=== PATIENT | female | born 1955 | race Caucasian/White ===

== ENCOUNTER 2018-08-31 16:32 | Inpatient (IN) | payer OTHER ==
--- NOTE | 2018-08-31 16:41 | PDOC ---
Rapid Medical Evaluation Chief Complaint: Respiratory Time Seen by Provider: 08/31/18 16:38 Medical Evaluation: 08/31/18 16:40 I have performed a brief in person evaluation at triage on this patient. CC: Cough/HTN HPI: Pt is a 63 YO female who was sent her by her PCP due to HTN, no hx, and a cough x 3 months. PE: Skin: clear Lungs: clear Heart: RRR MS: Moves all extremities without difficulty Neuro: Alert and oriented Psych: Appropriate affect I have ordered: basic labs Pt will proceed to the main ED for further evaluation. Discharge Disposition - Diagnosis Cough - Referrals - Patient Instructions - Post Discharge Activity
[2018-08-31] MEDS ORDERED: amLODIPine BESYLATE 5 MG TABLET (FP) PO ONE (17:14)
--- NOTE | 2018-08-31 17:18 | PDOC ---
Documentation entered by Vaishali De Guzman SCRIBE, acting as scribe for Luis Norman MD. Luis Norman MD: This documentation has been prepared by the Gab hassan Amanda, SCRIBE, under my direction and personally reviewed by me in its entirety. I confirm that the documentation accurately reflects all work, treatment, procedures, and medical decision making performed by me. Attending Attestation - Resident Resident Name: [email or web address] - ED Attending Attestation I have performed the following: I have examined & evaluated the patient, The case was reviewed & discussed with the resident, I agree w/resident's findings & plan, Exceptions are as noted - HPI HPI: 08/31/18 17:32 The patient is a 63 year old female with a significant past medical history of hypertension who presents to the ED for evaluation of nonproductive cough for 3 months with associated muscle aches to her abdomen and flanks which she attributes to excessive coughing. She denies any chest pain, dizziness, palpitations. She denies headache, visual changes. She denies nausea, vomiting, diarrhea. Allergies: NKDA Social Hx: 1ppd smoker w/ 3 weeks cessation - Physicial Exam PE: 08/31/18 17:31 Vitals: Triage vital signs reviewed General Appearance: No acute distress, well nourished, well developed Head: Atraumatic Eyes: Pupils equal reactive round, extraocular movement intact Neck: Supple; No nuchal rigidity Chest Wall: Nontender Cardiac: (+) slightly tachycardic. Regular rhythm, no murmurs, no rubs, no gallops Lungs: Clear to auscultation bilateral, good air movement bilaterally Abdomen: Soft, nondistended, normal bowel sounds, nontender to palpation Extremities: Full range of motion to all extremities, no cyanosis, clubbing, or edema Skin: Warm and dry, no rashes or lesions, no rash, no petechiae Neuro: AOX3; Cranial Nerves 2-12 grossly intact, Strength intact to all extremities, Sensation intact to all extremities, gait normal Psych: Normal mood, normal affect - Medical Decision Making 08/31/18 18:49 63 years old 20+ pack year smoker uncontrolled hypertension sent from her primary care's office for blood pressure 210/120 with one-month history of cough shortness of breath and intermittent chest discomfort EKG demonstrates no ST elevations Labs pending chest x-ray concerning for right upper lobe mass versus consolidation We'll order CT blood pressure better controlled at this time Dr. Nunez to follow up labs , CT and dispo
[2018-08-31] MEDS ORDERED: amLODIPine BESYLATE 5 MG TABLET (FP) ONE (17:43)
[2018-08-31 17:54] LABS: BASO % 0.8 % (0-2.0); EOS % 5.8 % (0-4.5); HEMATOCRIT 37.4 % (32.4-45.2); HEMOGLOBIN 12.8 GM/dL (10.7-15.3); MCH 31.1 pg (25.7-33.7); MCHC 34.2 g/dl (32.0-36.0); MEAN CELL VOLUME 91.1 fl (80-96); MEAN PLT VOLUME 6.4 fl (7.5-11.1); MONO % 6.7 % (3.8-10.2); NEUT % 73.7 % (42.8-82.8); PLATELET COUNT 590 K/MM3 (134-434); RBC 4.11 M/mm3 (3.60-5.2); RDW 13.1 % (11.6-15.6); WHITE BLOOD COUNT 13.6 K/mm3 (4.0-10.0)
[2018-08-31 18:37] LABS: ALBUMIN 3.2 g/dl (3.4-5.0); ALK PHOS 78 U/L (45-117); ANION GAP 11 MMOL/L (8-16); BILIRUBIN,TOTAL 0.2 mg/dL (0.2-1); BLOOD UREA NITROGEN 12 mg/dL (7-18); CALCIUM 9.1 mg/dL (8.5-10.1); CHLORIDE 96 mmol/L (98-107); CO2 24 mmol/L (21-32); CREATININE 0.4 mg/dL (0.55-1.3); GLUCOSE,RANDOM 86 mg/dL (74-106); N-TERMINAL BNP 170.1 pg/ml (5-125); POTASSIUM 4.1 mmol/L (3.5-5.1); SGOT/AST 15 U/L (15-37); SGPT/ALT 24 U/L (13-61); SODIUM 131 mmol/L (136-145); TOT PROT 7.7 g/dl (6.4-8.2)
--- NOTE | 2018-08-31 19:40 | PDOC ---
History of Present Illness - General Chief Complaint: Respiratory Stated Complaint: SENT BY PCP Time Seen by Provider: 08/31/18 16:38 History Source: Patient Exam Limitations: No Limitations - History of Present Illness Initial Comments: 08/31/18 19:34 63F with a distant PMH of HTN (not on meds and has not seen PCP in 10 years) who present to the ED from her PCP's office. The patient was establishing care with her PCP for 4 months of intermittent cough that has worsened since the beginning of this month. The patient was noted to be hypertensive 200's/100's in the office with possible EKG changes. Cards was called, Dr. Heard, who recommended her to present to the ER. The patient has no complaints besides generalized weakness after exerting herself and her cough. Past History - Past Medical History Allergies/Adverse Reactions: Allergies Allergy/AdvReac Type Severity Reaction Status Date / Time No Known Allergies Allergy Verified 08/31/18 16:39 Home Medications: Ambulatory Orders NK [No Known Home Medication] 08/31/18 COPD: No - Suicide/Smoking/Psychosocial Hx Smoking History: Current every day smoker Number of Cigarettes Smoked Daily: 20 Information on smoking cessation initiated: Yes Review of Systems - Review of Systems Able to Perform ROS?: Yes Comments:: 08/31/18 19:42 GENERAL/CONSTITUTIONAL: No fever or chills. No weakness. HEAD, EYES, EARS, NOSE AND THROAT: No change in vision. No ear pain or discharge. No sore throat. CARDIOVASCULAR: No chest pain, palpitations, or lightheadedness. RESPIRATORY: + for cough. No wheezing, shortness of breath, or hemoptysis. GASTROINTESTINAL: No nausea, vomiting, diarrhea, constipation, or abdominal pain. GENITOURINARY: No dysuria, frequency, hematuria, or change in urination. MUSCULOSKELETAL: No joint or muscle swelling or pain. No neck or back pain. SKIN: No rash or lesions. NEUROLOGIC: No headache, numbness, tingling, focal weakness, loss of consciousness, or change in strength/sensation. *Physical Exam - Vital Signs Last Vital Signs Temp Pulse Resp BP Pulse Ox 98.4 F 98 H 27 H 176/109 H 95 08/31/18 16:39 08/31/18 18:00 08/31/18 18:00 08/31/18 18:00 08/31/18 16:39 - Physical Exam Comments: 08/31/18 19:43 GENERAL: Well developed, well nourished. Awake and alert. No acute distress. HEENT: Normocephalic, atraumatic. Hearing grossly normal. Moist mucous membranes. PERRLA, EOMI. No conjunctival pallor. Sclera are non-icteric. NECK: Supple. Full ROM. No JVD. CARDIOVASCULAR: Regular rate and rhythm. No murmurs, rubs, or gallops. PULMONARY: No evidence of respiratory distress. Lungs clear to auscultation bilaterally. No wheezing, rales or rhonchi. ABDOMINAL: Soft. Non-tender. Non-distended. No rebound or guarding. GENITOURINARY: No CVA tenderness bilaterally. MUSCULOSKELETAL: Normal range of motion at all joints. No bony deformities or tenderness. EXTREMITIES: No cyanosis. No clubbing. No edema. No calf tenderness or swelling. SKIN: Warm and dry. Normal capillary refill. No rashes. No jaundice. NEUROLOGICAL: Alert, awake, appropriate. Cranial nerves 2-12 intact. No deficits to light touch and temperature in face, upper extremities and lower extremities. 5/5 strength in deltoids, biceps, triceps, quadriceps, hamstrings, and gastrocnemius. Finger to nose normal bilaterally. Normal speech. Gait is normal without ataxia. PSYCHIATRIC: Cooperative. Good eye contact. Appropriate mood and affect. ED Treatment Course - LABORATORY CBC & Chemistry Diagram: 08/31/18 16:41 08/31/18 16:41 - ADDITIONAL ORDERS Additional order review: Laboratory Results 08/31/18 08/31/18 16:43 16:41 Sodium 131 L Potassium 4.1 Chloride 96 L Carbon Dioxide 24 Anion Gap 11 BUN 12 Creatinine 0.4 L Creat Clearance w eGFR 161.21 Random Glucose 86 Calcium 9.1 Total Bilirubin 0.2 AST 15 ALT 24 Alkaline Phosphatase 78 Creatine Kinase 49 Troponin I < 0.02 B-Natriuretic Peptide 170.1 H Total Protein 7.7 Albumin 3.2 L TSH 1.59 08/31/18 16:41 RBC 4.11 MCV 91.1 MCHC 34.2 RDW 13.1 MPV 6.4 L Neutrophils % 73.7 Lymphocytes % 13.0 Monocytes % 6.7 Eosinophils % 5.8 H Basophils % 0.8 - RADIOLOGY Radiology Studies Ordered: Category Date Time Status CHEST CTA [CT] Stat CT Scan 08/31/18 19:31 Ordered - Medications Given in the ED: ED Medications Discontinued Medications Generic Name Dose Route Start Last Admin Trade Name Kristyn PRN Reason Stop Dose Admin Amlodipine Besylate 5 mg 08/31/18 17:14 08/31/18 17:47 Norvasc - PO 08/31/18 17:15 5 mg ONCE ONE Administration Medical Decision Making - Medical Decision Making 08/31/18 19:43 63F with no PMH who presents from her PCP's clinic (first visit) with elevated BP and EKG changes. Due to abnormal presentation and 40 pack year history, will obtain imaging and give 5 norvasc for elevated BP. 08/31/18 21:47 Labs WNL. Mild leukocytosis but other labs WNL. CT shows lung mass w/ mets. Case d/w Dr. Castellano, pt's PCP, who request admission to hospital so that pt can see specialists, agreeable with our plan. Pt informed of results. Hospitalist paged for admission. 08/31/18 22:[address] Leon for admission. *DC/Admit/Observation/Transfer Diagnosis at time of Disposition: Cough, Lung mass - Discharge Dispostion Condition at time of disposition: Guarded Decision to Admit order: Yes - Referrals Referrals: Geri Castellano MD [Primary Care Provider] - - Patient Instructions - Post Discharge Activity
[2018-08-31] MEDS ORDERED: CEFTRIAXONE 1 GM in DEXTROSE 5%-WATER - 50 ML IVPB ONE (21:59)
[2018-08-31] MEDS ORDERED: AZITHROMYCIN IVPB 500 MG/250 ML BAG IVPB SCH (22:00)
--- NOTE | 2018-08-31 22:13 | PN ---
Teaching Attending Note Name of Resident: Daniel Leon ATTENDING PHYSICIAN STATEMENT I saw and evaluated the patient. I reviewed the resident's note and discussed the case with the resident. I agree with the resident's findings and plan as documented. SUBJECTIVE: Seen and examined; please refer to resident note for further historical information. Teodora, this is a 63 y/o female presenting from her PCP's ofice on first visit found to have SBP >200; in the ER SBP 170s at presentation and ask in terms of typical cardiac sx. On CTA of chest found to have cavitary RUL lesion with multiple pulmonary nodules likely representing metastatic disease alongside pathologic fractures, and possible infiltrate. Concern documented for poor followup; will admit to medicine with pulmonary, oncology consultation. Due to presence of hypertensive emergency will place on telemetry. She has had unproductive cough for 3 months and soreness and muscle pain from soreness from coughing; started after nonspecific URI in the AM. She was told she had an abnormal EKG but it is not clear what was abnormal; study not available. 2 weeks ago she went to urgent care and got teselon perles and azithro which didn't help. Unintentional weight loss of 13 lbs. Did have exposure to 01/12 ([facility] which was quite [place] 40 pack year smoking history. No home medications. When the medicine team came to see her at ~1040PM her BP was 208/119. She was still asymptomatic and saturating well on RA. We gave her hydralazine IV push and 2.5 lisinopril PO and will recheck. 10 sys ROS done and negative aside from HPI PMH, PSH, FH (pancreatic, breast CA; brother with CVAs in 40s), SH reviewed Home Medications Medication Instructions Recorded NK [No Known Home Medication] 08/31/18 OBJECTIVE: VS, labs, imaging reviewed NAD, AAO, resting comfortably in bed NC AT EOMI PERRLA; tobacco stained teeth Slight tachy to RRR with s1/2 no wendi mgr Some RUL No edema, no swelling in joints CN2-12 wnl, no fnd Normal mood, appropriate behavior CT final report reviewed CT abdomen/pelvis ordered; pending Echo pending ASSESSMENT AND PLAN: Patient presents for hypertensive emergency (200s at PCPs office, 170s here) and is found to have likely metastatic cancer. She will be brought to telemetry on medicine service with appropriate consultation; appreciate expert input. 1) Hypertensive urgency -Improved without tx initially; no documented home medications. ER events noted. Now that it is elevated again will give dose of hydralazine and lisinopril now. -Will likely require 2 agents for optimal control. Asx now; monitor for symptoms. Repeat troponin. Monitor on telemetry, checking echo. Starting on Amlodipine 5mg PO QD and Lisinopril 2.5mg PO QD. -Checking A1c, TSH, Lipids given lack of PCP in the past. Can send records to her current provider who she just started with. 2) Metastatic Cancer -Noted on imaging; given R-sided cavitary findings will check TB test to ensure no occult infection but would be more suspicious of metastasis given the multiple nodules, etc. -Consulting pulmonary medicine, hematology/oncology. Checking CT Abdomen/ Pelvis. Check CA19-9, CA125, HIV, etc. -Will discuss with patient 3) Likely CAP -Infiltrate noted; incentive spirometry ordered. 4) Pathological Fractures -Noted; needs OP assessment for osteoporosis. Sent off vitamin D levels 5) Elevated BNP -Given uncontrolled HTN has risk factors for impaired relaxation, etc. Will send off an echo. Appears mostly euvolemic so will hold off diuresis. 6) Low albumin -Checking prealbumin; may be #2 7) Ongoing Tobacco Abuse -OP PFTs; PRN nebs. Likely underlying COPD.
[2018-08-31] MEDS ORDERED: hydrALAZINE HCL 20 MG/ML VIAL IVPUSH ONE (22:39)
[2018-08-31] MEDS ORDERED: LISINOPRIL 5 MG TABLET (FP) PO ONE (22:39)
[2018-08-31] MEDS ORDERED: hydrALAZINE HCL 20 MG/ML VIAL ONE (23:25)
[2018-08-31] MEDS ORDERED: LISINOPRIL 5 MG TABLET (FP) ONE (23:25)
[2018-08-31] MEDS ORDERED: CEFTRIAXONE 1 GM/50 ML BAG ONE (23:26)
--- NOTE | 2018-08-31 23:36 | HP ---
CHIEF COMPLAINT: Elevated Blood pressure PCP: Dr Castellano HISTORY OF PRESENT ILLNESS: Pt is a 63 y/o F with no significant past medical history who presented to [facility] at the behest of her PMD due to elevated BP and EKG changes. Pt endorses that she does not regularly follow up with a primary care doctor however decided to establish care after developing a cough since this past May. 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 pt did not seek medical care at that time. Since illness in May, pt has had a chronic nonproductive cough. Pt endorses taking otc cough remedies and azithromycin which was prescribed to her after she visited an urgent care a few weeks ago for her symptoms. Pt endorses a 13 pound weight loss since May. Attributes this to decreased appetite. Denies fever, chills, hemoptysis. Furthermore, pt states she use to work at [employer] in [place] during 01/12 and was exposed to the air pollution. Also endorses a 40 pack year smoking history. PMH none PSurgHx- Tonsillectomy SocialHx- 2HACT14 years, 1 glass of wine per day FH- Father Stroke pancreatic cancer, mother breast cancer, DC, sister breast cancer, brother multiple CVAs in 40s. ER course was notable for: (1) BP in ED 208/110 (2) CT Chest---> [id number] cavitary lesion . Infiltrate right pulmonary apex 4.7x3. Fractures right eigth rib, left 10th rib. Metastatic disease. (3) Family History: Allergies No Known Allergies Allergy (Verified 08/31/18 16:39) HOME MEDICATIONS: Home Medications Medication Instructions Recorded NK [No Known Home Medication] 08/31/18 REVIEW OF SYSTEMS CONSTITUTIONAL: PRESENT loss of appetite, weight change HEENT: Absent: rhinorrhea, nasal congestion, throat pain, throat swelling, difficulty swallowing, mouth swelling, ear pain, eye pain, visual changes CARDIOVASCULAR: Absent: chest pain, syncope, palpitations, irregular heart rate, lightheadedness , peripheral edema RESPIRATORY: PRESENT cough GASTROINTESTINAL: Absent: abdominal pain, abdominal distension, nausea, vomiting, diarrhea, constipation, melena, hematochezia GENITOURINARY: Absent: dysuria, frequency, urgency, hesitancy, hematuria, flank pain, genital pain MUSCULOSKELETAL: Absent: myalgia, arthralgia, joint swelling, back pain, neck pain SKIN: Absent: rash, itching, pallor HEMATOLOGIC/IMMUNOLOGIC: Absent: easy bleeding, easy bruising, lymphadenopathy, frequent infections ENDOCRINE: Absent: unexplained weight gain, unexplained weight loss, heat intolerance, cold intolerance NEUROLOGIC: Absent: headache, focal weakness or paresthesias, dizziness, unsteady gait, seizure, mental status changes, bladder or bowel incontinence PSYCHIATRIC: Absent: anxiety, depression, suicidal or homicidal ideation, hallucinations. PHYSICAL EXAMINATION Vital Signs - 24 hr 08/31/18 08/31/18 08/31/18 16:39 16:41 18:00 Temperature 98.4 F Pulse Rate 109 H Pulse Rate [ 108 H 98 H Right Radial] Respiratory 20 27 H 27 H Rate Blood Pressure 175/106 H Blood Pressure 160/124 H 176/109 H [Right Arm] O2 Sat by Pulse 95 Oximetry (%) 08/31/18 21:04 Temperature Pulse Rate Pulse Rate [ 95 H Right Radial] Respiratory 22 H Rate Blood Pressure Blood Pressure 161/104 H [Right Arm] O2 Sat by Pulse 94 L Oximetry (%) GENERAL: aaox3 nad HEAD: Normal with no signs of trauma. EYES: eomi sclera clear EARS, NOSE, THROAT:mmm NECK:supple LUNGS: good inspiratory effort. No crackles or wheezing appreciated HEART: Regular rate and rhythm, normal S1 and S2 without murmur, rub or gallop. ABDOMEN: ndnt, no guarding or rigidity. MUSCULOSKELETAL: from throughout . LOWER EXTREMITIES: no edema b/l IES: no cce, no discoloration, no onychomycosis . NEUROLOGICAL: Cranial nerves II-XII intact. Normal speech. Normal gait. PSYCHIATRIC: Cooperative. Good eye contact. Appropriate mood and affect. SKIN: no rashes or lesions appreciated Laboratory Results - last 24 hr 08/31/18 08/31/18 08/31/18 16:41 16:41 16:43 WBC 13.6 H RBC 4.11 Hgb 12.8 Hct 37.4 MCV 91.1 MCH 31.1 MCHC 34.2 RDW 13.1 Plt Count 590 H MPV 6.4 L Absolute Neuts (auto) 10.0 H Neutrophils % 73.7 Lymphocytes % 13.0 Monocytes % 6.7 Eosinophils % 5.8 H Basophils % 0.8 Nucleated RBC % 0 Sodium 131 L Potassium 4.1 Chloride 96 L Carbon Dioxide 24 Anion Gap 11 BUN 12 Creatinine 0.4 L Creat Clearance w eGFR 161.21 Random Glucose 86 Calcium 9.1 Total Bilirubin 0.2 AST 15 ALT 24 Alkaline Phosphatase 78 Creatine Kinase 49 Troponin I < 0.02 B-Natriuretic Peptide 170.1 H Total Protein 7.7 Albumin 3.2 L TSH 1.59 ASSESSMENT/PLAN: Pt is a 63 y/o F with no significant past medical history who presented to [facility] at the behest of her PMD due to elevated BP and EKG changes. #HTN Urgency. -BP in ED 208/119 - Denies any headache or vision changes. -given Norvasc 5 in ED. Will maintain on Norvasc 5. Lisinopril 2.5 daily. Hydralazine 20 IVPUSH once. Will check BP Q1H and admit to tele. MAP should be gradually reduced by 10-20% in 1st hour and then further 5-15% in next 23 hours per UpTo[employer]. Target BP less than 180/120 in first hour and then after 24 hrs should ideally reach 160/110. -repeat troponin q6h. 1st trop neg. -Echocardiogram to assess for structural abnormalities and EF in light of prolonged hypertension -Lipid profile -Cardiology consult #Metastatic Cancer CTAP reveals numerous metastatic lung lesions consistent with malignancy. dayne consult Onc. -Pulm Consult -Ca 19-9, CA 125 #Hyponatremia likely 2/2 SIADH Serum Na+ 131. May be secondary to SIADH Will order Urine Na+, Serum Osm,. Urine Osm. Urine Sodium >40, urine osm > 100 leads to diagnosis of SIADH. #CAP CTAP Infiltrate right pulm apex. Will place on ceftriaxone Strep pneumo and gram negatives and azithromycin to cover atypicals. Sputum cultures, Urine Legionella/Strep, RV Panel, AFB/Quantiferon #FEN No standing fluids Monitor Electrolytes Low Salt Diet #DVT ppx: HEPSQTID #Dispo: Tele Visit type - Emergency Visit Emergency Visit: Yes ED Registration Date: 08/31/18 Care time: The patient presented to the Emergency Department on the above date and was hospitalized for further evaluation of their emergent condition. - New Patient This patient is new to me today: Yes Date on this admission: 09/01/18 - Critical Care Critical Care patient: No
[2018-08-31] MEDS: HEPARIN NA (PORCINE) 5,000 UNITS/ML 1ML VIAL SQ SCH (23:38)
[2018-08-31] MEDS ORDERED: ALBUTEROL SO4 2.5/IPRATROPIUM 0.5 INH SOL 3 ML VIAL.NEB. NEB ONE (23:41)
[2018-09-01] MEDS ORDERED: AZITHROMYCIN IVPB 500 MG/250 ML BAG IVPB ONE ×2 (03:30→11:22)
[2018-09-01 04:01] LABS: CHOLESTEROL 201 mg/dL (50-200); HDL CHOLESTEROL 59 mg/dL (40-60); TRIGLYCERIDES 92 mg/dL (0-150)
[2018-09-01 06:37] LABS: BASO % 0.4 % (0-2.0); EOS % 6.6 % (0-4.5); HEMATOCRIT 35.8 % (32.4-45.2); HEMOGLOBIN 12.3 GM/dL (10.7-15.3); LYMPH % 10.1 % (8-40); MCHC 34.5 g/dl (32.0-36.0); MEAN PLT VOLUME 5.9 fl (7.5-11.1); MONO % 7.4 % (3.8-10.2); NEUT % 75.5 % (42.8-82.8); PLATELET COUNT 624 K/MM3 (134-434); RBC 3.97 M/mm3 (3.60-5.2); WHITE BLOOD COUNT 10.9 K/mm3 (4.0-10.0)
[2018-09-01 07:01] LABS: INR 1.06 (0.83-1.09); PROTHROMBIN TIME (PATIENT) 12.5 SEC (9.7-13.0)
[2018-09-01] MEDS: HEPARIN NA (PORCINE) 5,000 UNITS/ML 1ML VIAL SQ SCH ×2 (07:01→21:50)
[2018-09-01 07:03] LABS: ACTIVATED PTT 32.7 SECONDS (25.2-36.5)
[2018-09-01 07:13] LABS: ALBUMIN 2.8 g/dl (3.4-5.0); ALK PHOS 68 U/L (45-117); ANION GAP 9 MMOL/L (8-16); BILIRUBIN,TOTAL 0.3 mg/dL (0.2-1); BLOOD UREA NITROGEN 7 mg/dL (7-18); CALCIUM 8.6 mg/dL (8.5-10.1); CHLORIDE 99 mmol/L (98-107); CHOLESTEROL 195 mg/dL (50-200); CO2 25 mmol/L (21-32); CREATININE 0.3 mg/dL (0.55-1.3); GLUCOSE,RANDOM 81 mg/dL (74-106); PHOSPHOROUS 4.5 mg/dL (2.5-4.9); POTASSIUM 3.7 mmol/L (3.5-5.1); SGOT/AST 14 U/L (15-37); SGPT/ALT 20 U/L (13-61); SODIUM 133 mmol/L (136-145)
[2018-09-01] MEDS ORDERED: hydrALAZINE HCL 20 MG/ML VIAL IVPUSH PRN (07:28)
--- NOTE | 2018-09-01 10:30 | CON.CARD ---
Consult Consult Specialty:: Cardiology Referred by:: Medicine Reason for Consultation:: HTN - History of Present Illness Chief Complaint: cough History of Present Illness: 63F h/o HTN, smoking not on meds p/w HTN, EKG changes. Saw new PCP yesterday for the first time, Dr. Castellano, was told years ago she had high BP and says she doesn't remember systolic ever being less than 150, was not on meds before. No chest pain, palps, dizziness, lightheadedness. Has had a cough for a couple of months, 13 lbs weight loss. BP in ER 208/118, CT chest with cavitary lesion, concern for metastatic dz. - Smoking History Smoking history: Current every day smoker Aproximately how many cigarettes per day: 20 Home Medications - Allergies Allergies/Adverse Reactions: Allergies Allergy/AdvReac Type Severity Reaction Status Date / Time No Known Allergies Allergy Verified 08/31/18 16:39 - Home Medications Home Medications: Ambulatory Orders NK [No Known Home Medication] 08/31/18 Family Disease History - Family Disease History Family History: Unremarkable Review of Systems - Review of Systems Constitutional: reports: Malaise, Unintentional Wgt. Loss Eyes: reports: No Symptoms HENT: reports: No Symptoms Neck: reports: No Symptoms Cardiovascular: reports: No Symptoms Respiratory: reports: No Symptoms Gastrointestinal: reports: No Symptoms Genitourinary: reports: No Symptoms Musculoskeletal: reports: No Symptoms Integumentary: reports: No Symptoms Neurological: reports: No Symptoms Endocrine: reports: No Symptoms Hematology/Lymphatic: reports: No Symptoms Psychiatric: reports: No Symptoms Vital Signs: Vital Signs Temperature 98.5 F 09/01/18 09:38 Pulse Rate 107 H 09/01/18 09:38 Respiratory Rate 16 09/01/18 09:38 Blood Pressure 170/101 H 09/01/18 09:38 O2 Sat by Pulse Oximetry (%) 95 09/01/18 09:38 Constitutional: Yes: Well Nourished, No Distress, Calm Eyes: Yes: Conjunctiva Clear, EOM Intact HENT: Yes: Atraumatic, Normocephalic Neck: Yes: Supple, Trachea Midline Respiratory: Yes: Regular, CTA Bilaterally Gastrointestinal: Yes: Normal Bowel Sounds, Soft Cardiovascular: Yes: Regular Rate and Rhythm JVD: No Carotid Bruit: No PMI: Non-Displaced Heart Sounds: Yes: S1, S2 Musculoskeletal: No: Back Pain Extremities: No: Cold Edema: No Peripheral Pulses WNL: Yes Peripheral Pulses: 2+ Left Doralis Pedis, 2+ Right Dorsalis Pedis Integumentary: No: Jaundice Neurological: Yes: Alert, Oriented Psychiatric: No: Agitated - Other Data Labs, Other Data: CBC, BMP 09/01/18 05:20 09/01/18 05:20 INR, PTT INR 1.06 (0.83-1.09) 09/01/18 05:20 Troponin, BNP 08/31/18 09/01/18 09/01/18 16:41 02:54 02:54 Troponin I < 0.02 < 0.02 Cancelled B-Natriuretic Peptide 170.1 H Troponin, BNP 08/31/18 09/01/18 09/01/18 16:41 02:54 02:54 Troponin I < 0.02 < 0.02 Cancelled B-Natriuretic Peptide 170.1 H Assessment/Plan EKG: sinus tachycardia, no ischemic changes CT chest: mult pulmonary nodules suspicious for metastatic dz tele: sinus tachycardia HTN urgency - per patient long history of high BPs, was not on meds, poor follow up - improved after lisinopril, hydralazine, norvasc overnight - monitor BP on norvasc, lisinopril - uptitrate as tolerated - trop neg, EKG no ischemic changes - echo pending lung lesions - suggesting metastatic dz, onc consulted hyponatremia - manage per primary PNA - ID consulted tobacco use - encouraged cessation
[2018-09-01] MEDS: amLODIPine BESYLATE 5 MG TABLET (FP) PO SCH (11:15)
[2018-09-01] MEDS: CEFTRIAXONE 1 GM in DEXTROSE 5%-WATER - 50 ML IVPB SCH (11:15)
[2018-09-01] MEDS: LISINOPRIL 5 MG TABLET (FP) PO SCH (11:15)
[2018-09-01] MEDS ORDERED: amLODIPine BESYLATE 5 MG TABLET (FP) ONE (11:21)
--- NOTE | 2018-09-01 11:28 | CON.ID ---
Consult Consult Specialty:: infectious disease Referred by:: hospitalist Reason for Consultation:: possible pneumonia - History of Present Illness Chief Complaint: dry cough and weight loss History of Present Illness: 63 yo female with no prior medical care- history of HTN 15 years ago due to "stress"- saw daoc in f/u 140/90- never went back in May had the "flu" 3 days fever and cough cough never went away 15 poun weight loss no sweats, no further fevers no chills no chest pain no sob 2 weeks ago went [facility]- given pills for cough and a zpak saw a PMD yesterda- very elevated bp with abnl ekg and referred to ED cxray (the first she has had) very abnormal- chest ct with RUL mass encasing the pulmonary artery with multiple small pulmonary nodules secondary mass/infiltrate in RUL as well no hemoptysis no history of TB or TB contacts 40 pack year smoker - History Source History Provided By: Patient Limitations to Obtaining History: No Limitations - Past Medical History Cardio/Vascular: Yes: HTN - Smoking History Smoking history: Current every day smoker Aproximately how many cigarettes per day: 20 - Social History Usual Living Arrangement: With Spouse ADL: Independent Occupation: [employer] Place of : [facility] History of Recent Travel: Yes ([place] and [place]) Home Medications - Allergies Allergies/Adverse Reactions: Allergies Allergy/AdvReac Type Severity Reaction Status Date / Time No Known Allergies Allergy Verified 08/31/18 16:39 - Home Medications Home Medications: Ambulatory Orders NK [No Known Home Medication] 08/31/18 Family Disease History - Family Disease History Family Disease History: CA: Father (pancreatic), Mother (breast) Review of Systems - Review of Systems Constitutional: reports: Loss of Appetite, Unintentional Wgt. Loss, Weakness. denies: Chills, Fever, Night Sweats Eyes: reports: No Symptoms HENT: reports: No Symptoms, Hearing Loss. denies: Difficult Swallowing Neck: reports: No Symptoms Cardiovascular: denies: Chest Pain, Edema, Palpitations Respiratory: reports: Cough. denies: Hemoptysis Gastrointestinal: denies: Abdominal Pain, Constipation Genitourinary: reports: No Symptoms Breasts: reports: No Symptoms Reported, Other (has not had a mommogram in years , no pap test either) Musculoskeletal: reports: No Symptoms Integumentary: reports: No Symptoms Neurological: reports: No Symptoms. denies: Confusion, Headache Physical Exam Vital Signs: Vital Signs Temperature 98.5 F 09/01/18 09:38 Pulse Rate 107 H 09/01/18 09:38 Respiratory Rate 16 09/01/18 09:38 Blood Pressure 170/101 H 09/01/18 09:38 O2 Sat by Pulse Oximetry (%) 95 09/01/18 09:38 Constitutional: Yes: No Distress, Calm Eyes: Yes: Conjunctiva Clear HENT: Yes: Atraumatic, Normocephalic Neck: Yes: Supple. No: Lymphadenopathy Cardiovascular: Yes: Regular Rate and Rhythm Respiratory: Yes: Regular, Diminished Gastrointestinal: Yes: Normal Bowel Sounds, Soft ...Rectal Exam: Yes: Deferred Renal/: Yes: WNL Breast(s): Yes: WNL. No: Mass Musculoskeletal: Yes: WNL Extremities: Yes: WNL Edema: No Integumentary: Yes: WNL. No: Rash Psychiatric: Yes: Alert, Oriented Labs: CBC, BMP 09/01/18 05:20 09/01/18 05:20 Problem List - Problems (1) Lung mass Code(s): R91.8 - OTHER NONSPECIFIC ABNORMAL FINDING OF LUNG FIELD (2) HTN (hypertension) Code(s): I10 - ESSENTIAL (PRIMARY) HYPERTENSION Assessment/Plan cllinical picture most c/w malignancy agree with quantiferon and HIV testing (already sent) d/c zithromax continue ceftriaxone pulmonary to evaluate for biopsy urinary antigens for pneumonia treatment of HTN per hospitalist
--- NOTE | 2018-09-01 12:58 | EKG ---
Test Reason : Blood Pressure : / mmHG Vent. Rate : 103 BPM Atrial Rate : 103 BPM P-R Int : 168 ms QRS Dur : 076 ms QT Int : 336 ms P-R-T Axes : 068 057 060 degrees QTc Int : 440 ms SINUS TACHYCARDIA POSSIBLE LEFT ATRIAL ENLARGEMENT ANTEROSEPTAL INFARCT , AGE UNDETERMINED ABNORMAL ECG NO PREVIOUS ECGS AVAILABLE Confirmed by HAROON GAGE MD ([id number]) on 09/01/2018 12:58:04 PM Referred By: Confirmed By:HAROON GAGE MD
--- NOTE | 2018-09-01 13:23 | ECHO ---
Name: SUDHIR FRAUSTO Exam:Adult Echocardiogram Study Date: 09/01/2018 08:37 AM Age: 63 yrs Reason For Study: ELEVATED BNP Height: 67 in Weight: 125 lb BSA: 1.7 m2 MMode/2D Measurements & Calculations IVSd: 0.72 cm Ao root diam: 3.1 cm LVIDd: 4.0 cm LA dimension: 2.9 cm LVIDs: 2.8 cm LVPWd: 0.87 cm EDV(Teich): 70.7 ml LVOT diam: 2.0 cm ESV(Teich): 29.7 ml Doppler Measurements & Calculations MV E max kendrick: 36.5 cm/sec Ao V2 max: 129.5 cm/sec MV A max kendrick: 60.2 cm/sec Ao max P.7 mmHg MV E/A: 0.61 Ao V2 mean: 92.7 cm/sec Ao mean P.9 mmHg Ao V2 VTI: 22.2 cm JIM(I,D): 2.1 cm2 JIM(V,D): 2.3 cm2 LV V1 max P.6 mmHg SV(LVOT): 47.7 ml LV V1 mean P.0 mmHg LV V1 max: 94.3 cm/sec LV V1 mean: 67.0 cm/sec LV V1 VTI: 15.3 cm TR max kendrick: 209.6 cm/sec Med Peak E' Kendrick: 15.9 cm/sec TR max P.6 mmHg Med E/e': 2.3 Lat Peak E' Kendrick: 8.7 cm/sec Lat E/e': 4.2 Procedure The study was technically difficult with many images being suboptimal in quality. Left Ventricle The left ventricular size, thickness and function are normal. The left ventricular ejection fraction is normal. E/A reversal consistent with but not diagnostic of poor LV compliance. Regional wall motion abnormalities cannot be excluded due to limited visualization. Right Ventricle The right ventricle is not well visualized. Atria Normal left and right atrial size and function. Mitral Valve The mitral valve is not well visualized. A vegetation on the mitral valve cannot be excluded. There i s no mitral valve stenosis. There is mild to moderate mitral regurgitation. Tricuspid Valve There is mild tricuspid valve thickening. There is no tricuspid stenosis. There is mild tricuspid regurgitation. Right ventricular systolic pressure is normal. Aortic Valve The aortic valve is not well visualized. No hemodynamically significant valvular aortic stenosis. No aortic regurgitation is present. Pulmonic Valve The pulmonic valve is not well visualized. Great Vessels The aortic root is normal size. Pericardium/Pleura There is no pericardial effusion. Interpretation Summary The left ventricular size, thickness and function are normal The left ventricular ejection fraction is normal. Regional wall motion abnormalities cannot be excluded due to limited visualization. There is mild tricuspid regurgitation. Right ventricular systolic pressure is normal. The mitral valve is not well visualized. A vegetation on the mitral valve cannot be excluded. E/A reversal consistent with but not diagnostic of poor LV compliance There is mild to moderate mitral regurgitation. MD Santana Gonzalez 09/01/2018 01:23 PM
--- NOTE | 2018-09-01 14:33 | CON.PULM ---
Consult Consult Specialty:: PULMONARY Referred by:: Dr Morales Reason for Consultation:: lung nodules - History of Present Illness Chief Complaint: sent by PMD for HTN History of Present Illness: 63yo female without prior known past medical history who was seeing a new PMD for the first time who was sent to the ER for HTN and abnormal EKG. She does report some dyspnea with exertion and a nonproductive cough since May. She had fevers and chills at that time now resolved. Endorses an unintentional 10lb weight loss also since may with poor appetite. She quit smoking 5 days ago, started at age 18, smoked on average 1 PPD. Has not had any cancer screening in the past. Father with pancreatic ca, mother and sister with breast ca. - History Source History Provided By: Patient, Medical Record Limitations to Obtaining History: No Limitations - Past Medical History Cardio/Vascular: Yes: HTN - Smoking History Smoking history: Current every day smoker Aproximately how many cigarettes per day: 20 - Social History Usual Living Arrangement: With Spouse ADL: Independent Occupation: [employer] ([place]) History of Recent Travel: Yes ([place] and [place]) Home Medications - Allergies Allergies/Adverse Reactions: Allergies Allergy/AdvReac Type Severity Reaction Status Date / Time No Known Allergies Allergy Verified 08/31/18 16:39 - Home Medications Home Medications: Ambulatory Orders NK [No Known Home Medication] 08/31/18 Family Disease History - Family Disease History Family Disease History: CA: Father (pancreatic), Mother (breast) Review of Systems - Review of Systems Constitutional: reports: Chills, Fever, Unintentional Wgt. Loss Eyes: denies: Recent Change in Vision HENT: denies: Nasal Congestion, Throat Pain Neck: denies: Stiffness, Tenderness Cardiovascular: reports: Shortness of Breath. denies: Chest Pain, Palpitations Respiratory: reports: Cough, SOB on Exertion. denies: Hemoptysis, Wheezing Gastrointestinal: denies: Abdominal Pain, Nausea, Vomiting Genitourinary: denies: Dysuria, Hematuria Neurological: denies: Dizziness, Headache Endocrine: reports: Unexplained Weight Loss Physical Exam Vital Sings: Vital Signs Temperature 98.5 F 09/01/18 09:38 Pulse Rate 104 H 09/01/18 11:15 Respiratory Rate 16 09/01/18 11:15 Blood Pressure 157/88 09/01/18 11:15 O2 Sat by Pulse Oximetry (%) 99 09/01/18 11:15 Constitutional: Yes: No Distress, Calm Eyes: Yes: Conjunctiva Clear, EOM Intact HENT: Yes: Atraumatic, Normocephalic Neck: Yes: Supple, Trachea Midline Cardiovascular: Yes: Regular Rate and Rhythm Respiratory: Yes: Diminished (decreased breath sounds at the bases) ...Clubbing: No Gastrointestinal: Yes: Normal Bowel Sounds, Soft. No: Tenderness Edema: No Neurological: Yes: Alert, Oriented Labs: CBC, BMP 09/01/18 05:20 09/01/18 05:20 Imaging - Results Chest X-ray: Report Reviewed, Image Reviewed Cat Scan: Report Reviewed, Image Reviewed (multiple lung nodules bilaterally, RUL mass vs consolidation) Problem List - Problems (1) HTN (hypertension) Code(s): I10 - ESSENTIAL (PRIMARY) HYPERTENSION (2) Lung mass Code(s): R91.8 - OTHER NONSPECIFIC ABNORMAL FINDING OF LUNG FIELD Assessment/Plan Likely Metastatic Disease Suspect Superimposed Pneumonia Smoker HTN - agree with empiric antibiotics - f/u cultures - best approach for diagnosis would be CT guided needle biopsy to document metastatic disease - inhaled bronchodilators as needed - outpt PFTs - smoking cessation - DVT prophylaxis Thank you for this consult Otis Chao MD
--- NOTE | 2018-09-01 15:48 | PN ---
Teaching Attending Note Name of Resident: Rochelle Hensley ATTENDING PHYSICIAN STATEMENT I saw and evaluated the patient. I reviewed the resident's note and discussed the case with the resident. I agree with the resident's findings and plan as documented with exceptions below. SUBJECTIVE: patient seen and examined. reports cough that is chronic. No new chest pain, dyspnea, palpitations, fevers, chills, headache or visual changes or new concerns otherwise. Does report weight loss over last one year OBJECTIVE: Vital Signs Period Temp Pulse Resp BP Sys/Espinal Pulse Ox Last 24 Hr 98.4 F-99.4 F 95-109 16-27 157-176/85-124 94-99 Intake & Output 08/29/18 08/30/18 08/31/18 09/01/18 23:59 23:59 23:59 23:59 Weight 125 lb General: lying in bed in no acute distress Chest; Decreased breath sounds all over, unable to appreciate any rales or wheezing Abdomen:Soft, NT nD Extremities: no edema Home Medications Medication Instructions Recorded NK [No Known Home Medication] 08/31/18 Active Medications Amlodipine Besylate (Norvasc -) 5 mg PO DAILY [facility] Last Admin: 09/01/18 11:15 Dose: 5 mg Heparin Sodium (Porcine) (Heparin -) 5,000 unit SQ TID [facility] Last Admin: 09/01/18 07:01 Dose: 5,000 unit Hydralazine HCl (Apresoline Injection -) 10 mg IVPUSH Q6H PRN PRN Reason: HYPERTENSION Ceftriaxone Sodium 1 gm/ (Dextrose) 50 mls @ 100 mls/hr IVPB DAILY [facility]; Protocol Last Admin: 09/01/18 11:15 Dose: 100 mls/hr Lisinopril (Prinivil) 2.5 mg PO DAILY [facility] Last Admin: 09/01/18 11:15 Dose: 2.5 mg Laboratory Results - last 24 hr 08/31/18 08/31/18 08/31/18 16:41 16:41 16:43 WBC 13.6 H RBC 4.11 Hgb 12.8 Hct 37.4 MCV 91.1 MCH 31.1 MCHC 34.2 RDW 13.1 Plt Count 590 H MPV 6.4 L Absolute Neuts (auto) 10.0 H Neutrophils % 73.7 Lymphocytes % 13.0 Monocytes % 6.7 Eosinophils % 5.8 H Basophils % 0.8 Nucleated RBC % 0 PT with INR INR PTT (Actin FS) Sodium 131 L Potassium 4.1 Chloride 96 L Carbon Dioxide 24 Anion Gap 11 BUN 12 Creatinine 0.4 L Creat Clearance w eGFR 161.21 Random Glucose 86 Hemoglobin A1c % Serum Osmolality Calcium 9.1 Phosphorus Magnesium Total Bilirubin 0.2 AST 15 ALT 24 Alkaline Phosphatase 78 Creatine Kinase 49 Troponin I < 0.02 B-Natriuretic Peptide 170.1 H Total Protein 7.7 Albumin 3.2 L Prealbumin Triglycerides Cholesterol Total LDL Cholesterol HDL Cholesterol TSH 1.59 09/01/18 09/01/18 09/01/18 02:54 02:54 02:54 WBC RBC Hgb Hct MCV MCH MCHC RDW Plt Count MPV Absolute Neuts (auto) Neutrophils % Lymphocytes % Monocytes % Eosinophils % Basophils % Nucleated RBC % PT with INR INR PTT (Actin FS) Sodium Potassium Chloride Carbon Dioxide Anion Gap BUN Creatinine Creat Clearance w eGFR Random Glucose Hemoglobin A1c % 5.6 Serum Osmolality Calcium Phosphorus Magnesium Total Bilirubin AST ALT Alkaline Phosphatase Creatine Kinase Troponin I < 0.02 B-Natriuretic Peptide Total Protein Albumin Prealbumin 15.4 L Triglycerides 92 Cholesterol 201 H Total LDL Cholesterol 125 H HDL Cholesterol 59 TSH 09/01/18 09/01/18 09/01/18 02:54 02:54 05:20 WBC 10.9 H RBC 3.97 Hgb 12.3 Hct 35.8 MCV 90.0 MCH 31.0 MCHC 34.5 RDW 13.0 Plt Count 624 H MPV 5.9 L Absolute Neuts (auto) 8.2 H Neutrophils % 75.5 Lymphocytes % 10.1 D Monocytes % 7.4 Eosinophils % 6.6 H Basophils % 0.4 Nucleated RBC % 0 PT with INR INR PTT (Actin FS) Sodium Potassium Chloride Carbon Dioxide Anion Gap BUN Creatinine Creat Clearance w eGFR Random Glucose Hemoglobin A1c % Serum Osmolality 274 L Calcium Phosphorus Magnesium Total Bilirubin AST ALT Alkaline Phosphatase Creatine Kinase Troponin I Cancelled B-Natriuretic Peptide Total Protein Albumin Prealbumin Triglycerides Cholesterol Total LDL Cholesterol HDL Cholesterol TSH 09/01/18 09/01/18 05:20 05:20 WBC RBC Hgb Hct MCV MCH MCHC RDW Plt Count MPV Absolute Neuts (auto) Neutrophils % Lymphocytes % Monocytes % Eosinophils % Basophils % Nucleated RBC % PT with INR 12.50 INR 1.06 PTT (Actin FS) 32.7 Sodium 133 L Potassium 3.7 Chloride 99 Carbon Dioxide 25 Anion Gap 9 BUN 7 Creatinine 0.3 L Creat Clearance w eGFR 224.68 Random Glucose 81 Hemoglobin A1c % Serum Osmolality Calcium 8.6 Phosphorus 4.5 Magnesium 2.0 Total Bilirubin 0.3 AST 14 L ALT 20 Alkaline Phosphatase 68 Creatine Kinase Troponin I B-Natriuretic Peptide Total Protein 7.0 Albumin 2.8 L Prealbumin Triglycerides Cholesterol 195 Total LDL Cholesterol HDL Cholesterol TSH 1.[address] chest/A/P results reviewed 2D echo results reviewed ASSESSMENT AND PLAN: 63 yof with no significant PMHX, seeing a new PCP for the first time, sent in with elevated BP and abnormal EKG. -RUL/[place] cavitary mass/opacity with pulmonary nodules, suspected metastatic disease -Suspected superimposed PNA -Uncontrolled HTN, likely undiagnosed -Smoker Plan: Emperic Ceftriaxone. Pulmonary/ID/cardiology input noted. Follow up oncology. Likely needs CT guided biopsy of lung lesion given no other lesions seen for biopsy Amlodipine/Lisinopril for BP control, hydralazine prn. DVTPPX Dispo pending clinical improvement. Plan discussed with patient and nursing in detail, all questions answered.
--- NOTE | 2018-09-01 16:21 | PN ---
Physical Exam: SUBJECTIVE: Patient seen and examined, complaining of cough, SOB. OBJECTIVE: Vital Signs Period Temp Pulse Resp BP Sys/Espinal Pulse Ox Last 24 Hr 98.4 F-99.4 F 95-109 16-27 157-176/85-124 94-99 GENERAL: The patient is awake, alert, and fully oriented, in no acute distress. HEAD: Normal with no signs of trauma. EYES: Extraocular movements intact ENT: Oropharynx clear without exudates, moist mucous membranes. NECK: Trachea midline, full range of motion, supple. LUNGS: Breath sounds equal, clear to auscultation bilaterally, no wheezes, no crackles, no accessory muscle use. HEART: Regular rate and rhythm, S1, S2 without murmur, rub or gallop. ABDOMEN: Soft, nontender, nondistended, normoactive bowel sounds, no guarding EXTREMITIES: 2+ pulses,no edema. NEUROLOGICAL: Normal speech, non focal, gait not observed. PSYCH: Normal mood, normal affect. SKIN: Warm, dry, no rashes. Laboratory Results - last 24 hr 08/31/18 08/31/18 08/31/18 16:41 16:41 16:43 WBC 13.6 H RBC 4.11 Hgb 12.8 Hct 37.4 MCV 91.1 MCH 31.1 MCHC 34.2 RDW 13.1 Plt Count 590 H MPV 6.4 L Absolute Neuts (auto) 10.0 H Neutrophils % 73.7 Lymphocytes % 13.0 Monocytes % 6.7 Eosinophils % 5.8 H Basophils % 0.8 Nucleated RBC % 0 PT with INR INR PTT (Actin FS) Sodium 131 L Potassium 4.1 Chloride 96 L Carbon Dioxide 24 Anion Gap 11 BUN 12 Creatinine 0.4 L Creat Clearance w eGFR 161.21 Random Glucose 86 Hemoglobin A1c % Serum Osmolality Calcium 9.1 Phosphorus Magnesium Total Bilirubin 0.2 AST 15 ALT 24 Alkaline Phosphatase 78 Creatine Kinase 49 Troponin I < 0.02 B-Natriuretic Peptide 170.1 H Total Protein 7.7 Albumin 3.2 L Prealbumin Triglycerides Cholesterol Total LDL Cholesterol HDL Cholesterol TSH 1.59 09/01/18 09/01/18 09/01/18 02:54 02:54 02:54 WBC RBC Hgb Hct MCV MCH MCHC RDW Plt Count MPV Absolute Neuts (auto) Neutrophils % Lymphocytes % Monocytes % Eosinophils % Basophils % Nucleated RBC % PT with INR INR PTT (Actin FS) Sodium Potassium Chloride Carbon Dioxide Anion Gap BUN Creatinine Creat Clearance w eGFR Random Glucose Hemoglobin A1c % 5.6 Serum Osmolality Calcium Phosphorus Magnesium Total Bilirubin AST ALT Alkaline Phosphatase Creatine Kinase Troponin I < 0.02 B-Natriuretic Peptide Total Protein Albumin Prealbumin 15.4 L Triglycerides 92 Cholesterol 201 H Total LDL Cholesterol 125 H HDL Cholesterol 59 TSH 09/01/18 09/01/18 09/01/18 02:54 02:54 05:20 WBC 10.9 H RBC 3.97 Hgb 12.3 Hct 35.8 MCV 90.0 MCH 31.0 MCHC 34.5 RDW 13.0 Plt Count 624 H MPV 5.9 L Absolute Neuts (auto) 8.2 H Neutrophils % 75.5 Lymphocytes % 10.1 D Monocytes % 7.4 Eosinophils % 6.6 H Basophils % 0.4 Nucleated RBC % 0 PT with INR INR PTT (Actin FS) Sodium Potassium Chloride Carbon Dioxide Anion Gap BUN Creatinine Creat Clearance w eGFR Random Glucose Hemoglobin A1c % Serum Osmolality 274 L Calcium Phosphorus Magnesium Total Bilirubin AST ALT Alkaline Phosphatase Creatine Kinase Troponin I Cancelled B-Natriuretic Peptide Total Protein Albumin Prealbumin Triglycerides Cholesterol Total LDL Cholesterol HDL Cholesterol TSH 09/01/18 09/01/18 05:20 05:20 WBC RBC Hgb Hct MCV MCH MCHC RDW Plt Count MPV Absolute Neuts (auto) Neutrophils % Lymphocytes % Monocytes % Eosinophils % Basophils % Nucleated RBC % PT with INR 12.50 INR 1.06 PTT (Actin FS) 32.7 Sodium 133 L Potassium 3.7 Chloride 99 Carbon Dioxide 25 Anion Gap 9 BUN 7 Creatinine 0.3 L Creat Clearance w eGFR 224.68 Random Glucose 81 Hemoglobin A1c % Serum Osmolality Calcium 8.6 Phosphorus 4.5 Magnesium 2.0 Total Bilirubin 0.3 AST 14 L ALT 20 Alkaline Phosphatase 68 Creatine Kinase Troponin I B-Natriuretic Peptide Total Protein 7.0 Albumin 2.8 L Prealbumin Triglycerides Cholesterol 195 Total LDL Cholesterol HDL Cholesterol TSH 1.66 Active Medications Generic Name Dose Route Start Last Admin Trade Name Freq PRN Reason Stop Dose Admin Amlodipine Besylate 5 mg 09/01/18 10:00 09/01/18 11:15 Norvasc - PO 5 mg DAILY [facility] Administration Heparin Sodium (Porcine) 5,000 unit 08/31/18 22:45 09/01/18 07:01 Heparin - SQ 5,000 unit TID [facility] Administration Hydralazine HCl 10 mg 09/01/18 07:28 Apresoline Injection - IVPUSH Q6H PRN HYPERTENSION Ceftriaxone Sodium 1 gm/ 50 mls @ 100 mls/hr 09/01/18 10:00 09/01/18 11:15 Dextrose IVPB 100 mls/hr DAILY [facility] Administration Protocol Lisinopril 2.5 mg 09/01/18 10:00 09/01/18 11:15 Prinivil PO 2.5 mg DAILY [facility] Administration ASSESSMENT/PLAN: Pt is a 63 y/o F with no significant past medical history who presented referred by her PMD due to elevated BP and EKG changes. HTN Urgency -BP on arrival 208/119 w/o symptoms -given Norvasc 5 in ED -cont Norvasc 5. Lisinopril 2.5 daily and started Hydralazine 10 mg Q6h -repeat troponin q6h. 1st trop neg. -ECHO reviewed -Cardiology consulted Suspected metastatic Cancer -CTAP- reviewed reveals numerous metastatic lung lesions consistent with malignancy, also cavitary lesion -follow up Oncology recs -Pulm Consulted, bipsy recommended -Ca 19-9, CA 125 pending -ID consulted -will also treat as superimposed PNA with chronic cough -continue Ceftriaxone -quantiferon and HIV pending -sputum cultures pending, Legionella urine FEN:No/no changes/ low Na diet DVT PPX: Heparin sq Dispo: Telemetry Problem List - Problems (1) Cough Code(s): R05 - COUGH (2) HTN (hypertension) Code(s): I10 - ESSENTIAL (PRIMARY) HYPERTENSION (3) Lung mass Code(s): R91.8 - OTHER NONSPECIFIC ABNORMAL FINDING OF LUNG FIELD Visit type - Emergency Visit Emergency Visit: Yes ED Registration Date: 08/31/18 Care time: The patient presented to the Emergency Department on the above date and was hospitalized for further evaluation of their emergent condition. - New Patient This patient is new to me today: Yes Date on this admission: 09/01/18 - Critical Care Critical Care patient: No - Discharge Referral Referred to [facility] Med [facility] No
--- NOTE | 2018-09-01 17:55 | CONSULT ---
Consultation: REQUESTING PROVIDER: CONSULT REQUEST: We have been asked to medically evaluate this patient for heme/ onc. HISTORY OF PRESENT ILLNESS: 63 y/o F w/no PMH (has not followed with a PCP regularly until this year) sent in to ER by PCP for elevated BP and EKG changes. She has had a dry cough since May of this year and has started following with a regular doctor this year due to the cough. 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 She went to her PCPs office due to persistent cough. She denies N/V/F/C , abd pain, CP, SOB, dizziness, dysuria, blood in stool, blood in urine, LE edema. She does report decrease in appetite since May and reports a 10-13 pound weight loss around the same time. She also reports increasing fatigue since May as well and decreased energy levels. She is a current smoker and has been smoking 1ppd for approximately 40 years. She was found to have pulmonary nodules found on CT of chest. PMH: no PMH, no medical follow up previously PSHx: Tonsillectomy SH: Smokes 1ppd x 40 years, current smoker. Drinks approx 1/2 bottle of wine per day on average. No drug use. FH: Father: Pancreatic ca,CVA. Mother: Breast Ca, [place]. Sister: Breast Ca. Brother : Multiple CVAs REVIEW OF SYSTEMS: CONSTITUTIONAL: +fatigue, weight loss, decreased appetite. Absent: fever, chills CARDIOVASCULAR: Absent: chest pain, peripheral edema RESPIRATORY: Absent: cough, shortness of breath GASTROINTESTINAL: Absent: abdominal pain, nausea, vomiting, diarrhea GENITOURINARY: Absent: dysuria, hematuria NEUROLOGIC: Absent: dizziness PHYSICAL EXAMINATION Vital Signs - 24 hr 08/31/18 08/31/18 09/01/18 18:00 21:04 09:38 Temperature 98.5 F Pulse Rate [ Apical] Pulse Rate [ 98 H 95 H 107 H Right Radial] Respiratory 27 H 22 H 16 Rate Blood Pressure 176/109 H 161/104 H 170/101 H [Right Arm] O2 Sat by Pulse 94 L 95 Oximetry (%) 09/01/18 09/01/18 11:15 15:17 Temperature 99.4 F Pulse Rate [ 104 H 102 H Apical] Pulse Rate [ Right Radial] Respiratory 16 16 Rate Blood Pressure 157/88 162/85 [Right Arm] O2 Sat by Pulse 99 96 Oximetry (%) GENERAL: Awake, alert, and fully oriented, in no acute distress. HEAD: Normal with no signs of trauma. EYES: extraocular movements intact, sclera anicteric, conjunctiva clear. EARS, NOSE, THROAT: Ears normal, nares patent, Moist mucous membranes. NECK: Normal range of motion, supple LUNGS: Breath sounds equal, clear to auscultation bilaterally HEART: Tachycardic, normal S1 and S2 ABDOMEN: Soft, nontender, normoactive bowel sounds LOWER EXTREMITIES: warm, well-perfused. No calf tenderness. No peripheral edema. NEUROLOGICAL: Cranial nerves II-XII grossly intact. Normal speech. Normal gait. PSYCHIATRIC: Cooperative. Good eye contact. Appropriate mood and affect. SKIN: Warm, dry BREAST: No breast masses noted. Laboratory Results - last 24 hr 08/31/18 08/31/18 08/31/18 16:41 16:41 16:43 WBC 13.6 H RBC 4.11 Hgb 12.8 Hct 37.4 MCV 91.1 MCH 31.1 MCHC 34.2 RDW 13.1 Plt Count 590 H MPV 6.4 L Absolute Neuts (auto) 10.0 H Neutrophils % 73.7 Lymphocytes % 13.0 Monocytes % 6.7 Eosinophils % 5.8 H Basophils % 0.8 Nucleated RBC % 0 PT with INR INR PTT (Actin FS) Sodium 131 L Potassium 4.1 Chloride 96 L Carbon Dioxide 24 Anion Gap 11 BUN 12 Creatinine 0.4 L Creat Clearance w eGFR 161.21 Random Glucose 86 Hemoglobin A1c % Serum Osmolality Calcium 9.1 Phosphorus Magnesium Total Bilirubin 0.2 AST 15 ALT 24 Alkaline Phosphatase 78 Creatine Kinase 49 Troponin I < 0.02 B-Natriuretic Peptide 170.1 H Total Protein 7.7 Albumin 3.2 L Prealbumin Triglycerides Cholesterol Total LDL Cholesterol HDL Cholesterol TSH 1.59 09/01/18 09/01/18 09/01/18 02:54 02:54 02:54 WBC RBC Hgb Hct MCV MCH MCHC RDW Plt Count MPV Absolute Neuts (auto) Neutrophils % Lymphocytes % Monocytes % Eosinophils % Basophils % Nucleated RBC % PT with INR INR PTT (Actin FS) Sodium Potassium Chloride Carbon Dioxide Anion Gap BUN Creatinine Creat Clearance w eGFR Random Glucose Hemoglobin A1c % 5.6 Serum Osmolality Calcium Phosphorus Magnesium Total Bilirubin AST ALT Alkaline Phosphatase Creatine Kinase Troponin I < 0.02 B-Natriuretic Peptide Total Protein Albumin Prealbumin 15.4 L Triglycerides 92 Cholesterol 201 H Total LDL Cholesterol 125 H HDL Cholesterol 59 TSH 09/01/18 09/01/18 09/01/18 02:54 02:54 05:20 WBC 10.9 H RBC 3.97 Hgb 12.3 Hct 35.8 MCV 90.0 MCH 31.0 MCHC 34.5 RDW 13.0 Plt Count 624 H MPV 5.9 L Absolute Neuts (auto) 8.2 H Neutrophils % 75.5 Lymphocytes % 10.1 D Monocytes % 7.4 Eosinophils % 6.6 H Basophils % 0.4 Nucleated RBC % 0 PT with INR INR PTT (Actin FS) Sodium Potassium Chloride Carbon Dioxide Anion Gap BUN Creatinine Creat Clearance w eGFR Random Glucose Hemoglobin A1c % Serum Osmolality 274 L Calcium Phosphorus Magnesium Total Bilirubin AST ALT Alkaline Phosphatase Creatine Kinase Troponin I Cancelled B-Natriuretic Peptide Total Protein Albumin Prealbumin Triglycerides Cholesterol Total LDL Cholesterol HDL Cholesterol TSH 09/01/18 09/01/18 05:20 05:20 WBC RBC Hgb Hct MCV MCH MCHC RDW Plt Count MPV Absolute Neuts (auto) Neutrophils % Lymphocytes % Monocytes % Eosinophils % Basophils % Nucleated RBC % PT with INR 12.50 INR 1.06 PTT (Actin FS) 32.7 Sodium 133 L Potassium 3.7 Chloride 99 Carbon Dioxide 25 Anion Gap 9 BUN 7 Creatinine 0.3 L Creat Clearance w eGFR 224.68 Random Glucose 81 Hemoglobin A1c % Serum Osmolality Calcium 8.6 Phosphorus 4.5 Magnesium 2.0 Total Bilirubin 0.3 AST 14 L ALT 20 Alkaline Phosphatase 68 Creatine Kinase Troponin I B-Natriuretic Peptide Total Protein 7.0 Albumin 2.8 L Prealbumin Triglycerides Cholesterol 195 Total LDL Cholesterol HDL Cholesterol TSH 1.66 Active Medications Generic Name Dose Route Start Last Admin Trade Name Freq PRN Reason Stop Dose Admin Amlodipine Besylate 5 mg 09/01/18 10:00 09/01/18 11:15 Norvasc - PO 5 mg DAILY LUCAS Administration Heparin Sodium (Porcine) 5,000 unit 08/31/18 22:45 09/01/18 07:01 Heparin - SQ 5,000 unit TID LUCAS Administration Hydralazine HCl 10 mg 09/01/18 07:28 Apresoline Injection - IVPUSH Q6H PRN HYPERTENSION Ceftriaxone Sodium 1 gm/ 50 mls @ 100 mls/hr 09/01/18 10:00 09/01/18 11:15 Dextrose IVPB 100 mls/hr DAILY LUCAS Administration Protocol Lisinopril 2.5 mg 09/01/18 10:00 09/01/18 11:15 Prinivil PO 2.5 mg DAILY LUCAS Administration ASSESSMENT/PLAN: 63 y/o F w/no PMH (has not followed with a PCP regularly until this year) sent in to ER by PCP for elevated BP and EKG changes. Found to have pulmonary nodules found on CT of chest. Pulmonary nodules PNA HTN -Pt with extensive smoking history and now with pulmonary nodules. RUL nodule noted to be 7x4.7x4.5cm in size and R lung apex with infiltrate. Multiple b/l pulmonary nodules in lungs as well. -ultrasound of L supraclavicular neck for questionable LAD -Pulm recommendations for biopsy of nodules. -Smoking cessation -Abx coverage Dispo: We will continue to follow the patient. Thank you for this consultative opportunity. Visit type - Emergency Visit Emergency Visit: Yes ED Registration Date: 08/31/18 Care time: The patient presented to the Emergency Department on the above date and was hospitalized for further evaluation of their emergent condition. - New Patient This patient is new to me today: Yes Date on this admission: 09/01/18 - Critical Care Critical Care patient: No
--- NOTE | 2018-09-01 19:47 | PN ---
Teaching Attending Note Name of Resident: Travis Fletcher ATTENDING PHYSICIAN STATEMENT I saw and evaluated the patient. I reviewed the resident's note and discussed the case with the resident. I agree with the resident's findings and plan as documented. SUBJECTIVE: Patient seen and examined 63 year old female with 40+ pack smoking history, 1/2 bottle of wine per day drinker. Presents with large 7cm+ RUL mass with mediastinal involvement , likely post obstructive pneumonia and multiple pulmonary nodules. Has chronic cough and weight loss over past several months. Last Vital Signs Temp Pulse Resp BP Pulse Ox 99.6 F 105 H 18 144/81 96 09/01/18 18:11 09/01/18 18:11 09/01/18 18:11 09/01/18 18:11 09/01/18 18:11 HEENT: FELIPE, EOM Intact Oropharynx: No thrush, No mucositis Neck: Supple Nodes: firm left supraclavicular node Breasts: Without masses Cor: RSR, No murmurs, No gallops Lungs: clear Abd: Soft, Normal bowel sounds, No organomegaly Ext:No significant edema Skin: No rashes, Integument intact CBC, BMP 09/01/18 05:20 09/01/18 05:20 Current Medications Generic Name Dose Route Start Last Admin Trade Name Freq PRN Reason Stop Dose Admin Amlodipine Besylate 5 mg 09/01/18 10:00 09/01/18 11:15 Norvasc - PO 5 mg DAILY LUCAS Administration Heparin Sodium (Porcine) 5,000 unit 08/31/18 22:45 09/01/18 07:01 Heparin - SQ 5,000 unit TID LUCAS Administration Hydralazine HCl 10 mg 09/01/18 07:28 Apresoline Injection - IVPUSH Q6H PRN HYPERTENSION Ceftriaxone Sodium 1 gm/ 50 mls @ 100 mls/hr 09/01/18 10:00 09/01/18 11:15 Dextrose IVPB 100 mls/hr DAILY LUCAS Administration Protocol Influenza Virus Vaccine Quadrival 60 mcg 09/02/18 18:38 Flulaval Quad [id number] IM 09/02/18 18:39 .ONCE ONE Lisinopril 2.5 mg 09/01/18 10:00 09/01/18 11:15 Prinivil PO 2.5 mg DAILY LUCAS Administration Pneumococcal 13-Valent Conj Vacc 0.5 ml 09/02/18 18:38 Prevnar 13 Syringe - IM 09/02/18 18:39 .ONCE ONE Impression: Cavitary lung mass in heavy smoker with possible 01/12 exposure as well. Has mediastinal disease and likely post obstructive pneumonitis. Needs Tissue diagnosis and then staging with MRI of brain, PET. Continue antibiotics for post obstructive pneumonitis. To follow. OBJECTIVE: ASSESSMENT AND PLAN:
[2018-09-02] MEDS: HEPARIN NA (PORCINE) 5,000 UNITS/ML 1ML VIAL SQ SCH ×3 (05:43→21:18)
[2018-09-02 07:49] LABS: BASO % 0.8 % (0-2.0); EOS % 10.1 % (0-4.5); HEMATOCRIT 37.6 % (32.4-45.2); HEMOGLOBIN 12.6 GM/dL (10.7-15.3); MCH 30.6 pg (25.7-33.7); MCHC 33.6 g/dl (32.0-36.0); MEAN CELL VOLUME 91.1 fl (80-96); MEAN PLT VOLUME 6.2 fl (7.5-11.1); MONO % 7.5 % (3.8-10.2); NEUT % 66.6 % (42.8-82.8); PLATELET COUNT 678 K/MM3 (134-434); RBC 4.13 M/mm3 (3.60-5.2); WHITE BLOOD COUNT 11.1 K/mm3 (4.0-10.0)
[2018-09-02 08:12] LABS: ALK PHOS 71 U/L (45-117); ANION GAP 8 MMOL/L (8-16); BILIRUBIN,TOTAL 0.4 mg/dL (0.2-1); BLOOD UREA NITROGEN 8 mg/dL (7-18); CALCIUM 8.9 mg/dL (8.5-10.1); CHLORIDE 99 mmol/L (98-107); CO2 28 mmol/L (21-32); CREATININE 0.5 mg/dL (0.55-1.3); GLUCOSE,RANDOM 93 mg/dL (74-106); POTASSIUM 4.2 mmol/L (3.5-5.1); SGOT/AST 14 U/L (15-37); SGPT/ALT 20 U/L (13-61); SODIUM 135 mmol/L (136-145); TOT PROT 7.3 g/dl (6.4-8.2)
[2018-09-02] MEDS ORDERED: cefTRIAXone SODIUM 1 GM VIAL ONE (09:54)
[2018-09-02] MEDS ORDERED: DEXTROSE 5%-WATER - 50 ML IVPB ONE (09:54)
[2018-09-02] MEDS: amLODIPine BESYLATE 5 MG TABLET (FP) PO SCH (09:56)
[2018-09-02] MEDS: LISINOPRIL 5 MG TABLET (FP) PO SCH (09:56)
[2018-09-02] MEDS: CEFTRIAXONE 1 GM in DEXTROSE 5%-WATER - 50 ML IVPB SCH (09:57)
[2018-09-02] MEDS ORDERED: FLU VACCINE QUAD 60 MCG/0.5 ML (MDV 18-19) IM ONE (11:00)
[2018-09-02] MEDS ORDERED: PNEUMOCOCCAL 23 VACCINE 0.5 ML VIAL IM ONE (11:00)
--- NOTE | 2018-09-02 11:52 | PN ---
Progress Note, Physician History of Present Illness: PULMONARY ALERT,NO DISTRESS,-CP,-SOB - Current Medication List Current Medications: Active Medications Amlodipine Besylate (Norvasc -) 5 mg PO DAILY [facility] Last Admin: 09/02/18 09:56 Dose: 5 mg Heparin Sodium (Porcine) (Heparin -) 5,000 unit SQ TID [facility] Last Admin: 09/02/18 05:43 Dose: 5,000 unit Hydralazine HCl (Apresoline Injection -) 10 mg IVPUSH Q6H PRN PRN Reason: HYPERTENSION Ceftriaxone Sodium 1 gm/ (Dextrose) 50 mls @ 100 mls/hr IVPB DAILY [facility]; Protocol Last Admin: 09/02/18 09:57 Dose: 100 mls/hr Lisinopril (Prinivil) 2.5 mg PO DAILY [facility] Last Admin: 09/02/18 09:56 Dose: 2.5 mg - Objective Vital Signs: Vital Signs Temperature 98.8 F 09/02/18 09:00 Pulse Rate 99 H 09/02/18 09:00 Respiratory Rate 20 09/02/18 09:00 Blood Pressure 136/72 09/02/18 09:00 O2 Sat by Pulse Oximetry (%) 96 09/02/18 09:00 Constitutional: Yes: Well Nourished, Calm Eyes: Yes: WNL HENT: Yes: WNL Neck: Yes: WNL Cardiovascular: Yes: Regular Rate and Rhythm, S1, S2 Respiratory: Yes: CTA Bilaterally Gastrointestinal: Yes: Normal Bowel Sounds, Soft Extremities: Yes: WNL Edema: No Labs: CBC, BMP 09/02/18 05:40 09/02/18 05:40 INR, PTT INR 1.06 (0.83-1.09) 09/01/18 05:20 Assessment/Plan Problem List - Problems (1) HTN (hypertension) Code(s): I10 - ESSENTIAL (PRIMARY) HYPERTENSION (2) Lung mass Code(s): R91.8 - OTHER NONSPECIFIC ABNORMAL FINDING OF LUNG FIELD Assessment/Plan Likely Metastatic Disease Suspect Superimposed Pneumonia Smoker HTN - empiric antibiotics - CT guided needle biopsy to document metastatic disease - inhaled bronchodilators as needed - outpt PFTs - smoking cessation - DVT prophylaxis DR CATES
--- NOTE | 2018-09-02 12:29 | PN ---
Progress Note (short form) - Note Progress Note: s: no cp sob palps dizzy o: Vital Signs Period Temp Pulse Resp BP Sys/Espinal Pulse Ox Last 24 Hr 98.4 F-99.6 F 96-106 16-20 136-167/72-94 96-96 Constitutional: Yes: Well Nourished, No Distress, Calm Eyes: Yes: Conjunctiva Clear Neck: Yes: Supple, Trachea Midline Respiratory: Yes: Regular, CTA Bilaterally Gastrointestinal: Yes: Normal Bowel Sounds, Soft Cardiovascular: Yes: Regular Rate and Rhythm JVD: No Heart Sounds: Yes: S1, S2 Extremities: No: Cold Edema: No Peripheral Pulses: 2+ Left Doralis Pedis, 2+ Right Dorsalis Pedis Integumentary: No: Jaundice Neurological: Yes: Alert, Oriented Psychiatric: No: Agitated Current Medications Generic Name Dose Route Start Last Admin Trade Name Freq PRN Reason Stop Dose Admin Amlodipine Besylate 5 mg 09/01/18 10:00 09/02/18 09:56 Norvasc - PO 5 mg DAILY LUCAS Administration Heparin Sodium (Porcine) 5,000 unit 08/31/18 22:45 09/02/18 05:43 Heparin - SQ 5,000 unit TID LUCAS Administration Hydralazine HCl 10 mg 09/01/18 07:28 Apresoline Injection - IVPUSH Q6H PRN HYPERTENSION Ceftriaxone Sodium 1 gm/ 50 mls @ 100 mls/hr 09/01/18 10:00 09/02/18 09:57 Dextrose IVPB 100 mls/hr DAILY LUCAS Administration Protocol Lisinopril 2.5 mg 09/01/18 10:00 09/02/18 09:56 Prinivil PO 2.5 mg DAILY LUCAS Administration CBC, BMP 09/02/18 05:40 09/02/18 05:40 Assessment/Plan EKG: sinus tachycardia, no ischemic changes CT chest: mult pulmonary nodules suspicious for metastatic dz tele: sinus echo 09/2018: nl lv, rv tds, mild-mod mr, mild tr, nl rvsp HTN urgency - per patient long history of high BPs, was not on meds, poor follow up - improved after lisinopril, hydralazine, norvasc overnight - trops neg, EKG no ischemic changes - echo unremarkable lung lesions - suggesting metastatic dz, onc consulted hyponatremia - manage per primary PNA - ID consulted tobacco use - encouraged cessation cardiac curtis stable. dc tele
--- NOTE | 2018-09-02 13:14 | PN ---
Physical Exam: SUBJECTIVE: Patient seen and examined, felling fine, still coughing. OBJECTIVE: Vital Signs Period Temp Pulse Resp BP Sys/Espinal Pulse Ox Last 24 Hr 98.4 F-99.6 F 96-106 16-20 136-167/72-94 96-96 GENERAL: The patient is awake, alert, and fully oriented, in no acute distress. HEAD: Normal with no signs of trauma. EYES: Extraocular movements intact ENT: Oropharynx clear without exudates, moist mucous membranes. NECK: Trachea midline, full range of motion, supple. LUNGS: Breath sounds equal, occasional rhales bilaterally, no wheezes, no crackles, no accessory muscle use. HEART: Regular rate and rhythm, S1, S2 without murmur, rub or gallop. ABDOMEN: Soft, nontender, nondistended, normoactive bowel sounds, no guarding EXTREMITIES: 2+ pulses,no edema. NEUROLOGICAL: Normal speech, non focal, gait not observed. PSYCH: Normal mood, normal affect. SKIN: Warm, dry, no rashes. Laboratory Results - last 24 hr 08/31/18 08/31/18 09/01/18 18:00 18:00 02:54 WBC RBC Hgb Hct MCV MCH MCHC RDW Plt Count MPV Absolute Neuts (auto) Neutrophils % Lymphocytes % Monocytes % Eosinophils % Basophils % Nucleated RBC % Sodium Potassium Chloride Carbon Dioxide Anion Gap BUN Creatinine Creat Clearance w eGFR Random Glucose Calcium Total Bilirubin AST ALT Alkaline Phosphatase Total Protein Albumin CA 19-9 Antigen CA 125 Antigen Vitamin D 25-Hydroxy Urine Osmolality 167 L Ur Random Sodium 24 L HIV Genotype Non reactive 09/01/18 09/01/18 09/02/18 02:54 02:54 05:40 WBC 11.1 H RBC 4.13 Hgb 12.6 Hct 37.6 MCV 91.1 MCH 30.6 MCHC 33.6 RDW 13.0 Plt Count 678 H MPV 6.2 L Absolute Neuts (auto) 7.4 Neutrophils % 66.6 Lymphocytes % 15.0 D Monocytes % 7.5 Eosinophils % 10.1 H Basophils % 0.8 Nucleated RBC % 0 Sodium Potassium Chloride Carbon Dioxide Anion Gap BUN Creatinine Creat Clearance w eGFR Random Glucose Calcium Total Bilirubin AST ALT Alkaline Phosphatase Total Protein Albumin CA 19-9 Antigen 251 H CA 125 Antigen 34.6 Vitamin D 25-Hydroxy 23.0 L Urine Osmolality Ur Random Sodium HIV Genotype 09/02/18 05:40 WBC RBC Hgb Hct MCV MCH MCHC RDW Plt Count MPV Absolute Neuts (auto) Neutrophils % Lymphocytes % Monocytes % Eosinophils % Basophils % Nucleated RBC % Sodium 135 L Potassium 4.2 Chloride 99 Carbon Dioxide 28 Anion Gap 8 BUN 8 Creatinine 0.5 L Creat Clearance w eGFR 124.61 Random Glucose 93 Calcium 8.9 Total Bilirubin 0.4 AST 14 L ALT 20 Alkaline Phosphatase 71 Total Protein 7.3 Albumin 3.0 L CA 19-9 Antigen CA 125 Antigen Vitamin D 25-Hydroxy Urine Osmolality Ur Random Sodium HIV Genotype Active Medications Generic Name Dose Route Start Last Admin Trade Name Freq PRN Reason Stop Dose Admin Amlodipine Besylate 5 mg 09/01/18 10:00 09/02/18 09:56 Norvasc - PO 5 mg DAILY LUCAS Administration Heparin Sodium (Porcine) 5,000 unit 08/31/18 22:45 09/02/18 05:43 Heparin - SQ 5,000 unit TID LUCAS Administration Hydralazine HCl 10 mg 09/01/18 07:28 Apresoline Injection - IVPUSH Q6H PRN HYPERTENSION Ceftriaxone Sodium 1 gm/ 50 mls @ 100 mls/hr 09/01/18 10:00 09/02/18 09:57 Dextrose IVPB 100 mls/hr DAILY LUCAS Administration Protocol Lisinopril 2.5 mg 09/01/18 10:00 09/02/18 09:56 Prinivil PO 2.5 mg DAILY LUCAS Administration ASSESSMENT/PLAN: Pt is a 63 y/o F with no significant past medical history who presented referred by her PCP due to elevated BP and EKG changes. HTN Urgency -BP on arrival 208/119 w/o symptoms -cont Norvasc 5. Lisinopril 2.5 daily and started Hydralazine 10 mg Q6h -controlled now negative troponins, ECHO reviewed -Cardiology consulted, DC telemetry today Suspected metastatic Cancer -CTAP- reviewed reveals numerous metastatic lung lesions consistent with malignancy, also cavitary lesion -Pulm and Oncology consulted, CT guided biopsy recommended, ordered today -Ca 19-9 251, CA 125 nl -ID consulted -will also treat as superimposed PNA with chronic cough -continue Ceftriaxone 1g -quantiferon and HIV neg -sputum cultures ordered, Legionella urine neg FEN:No/no changes/ low Na diet/NPO after midnight DVT PPX: Heparin sq on hold Dispo: Med surg, CT guided biopsy tomorrow Problem List - Problems (1) Cough Code(s): R05 - COUGH (2) HTN (hypertension) Code(s): I10 - ESSENTIAL (PRIMARY) HYPERTENSION (3) Lung mass Code(s): R91.8 - OTHER NONSPECIFIC ABNORMAL FINDING OF LUNG FIELD Visit type - Emergency Visit Emergency Visit: Yes ED Registration Date: 08/31/18 Care time: The patient presented to the Emergency Department on the above date and was hospitalized for further evaluation of their emergent condition. - New Patient This patient is new to me today: No - Critical Care Critical Care patient: No - Discharge Referral Referred to [facility] Med P.C.: No
--- NOTE | 2018-09-02 15:43 | PN ---
Progress Note (short form) - Note Progress Note: feels better awaiting biopsy Vital Signs Period Temp Pulse Resp BP Sys/Espinal Pulse Ox Last 24 Hr 98.4 F-99.6 F 96-110 16-20 132-167/72-95 96-96 cor-rrr lungs decreased bs at bases abd soft,nt ext no edema CBC, BMP 09/02/18 05:40 09/02/18 05:40 Microbiology 08/31/18 10:10 Blood - Peripheral Venous Blood Culture - Preliminary NO GROWTH OBTAINED AFTER 24 HOURS, INCUBATION TO CONTINUE FOR 4 DAYS. 08/31/18 10:05 Blood - Peripheral Venous Blood Culture - Preliminary NO GROWTH OBTAINED AFTER 24 HOURS, INCUBATION TO CONTINUE FOR 4 DAYS. Current Medications Amlodipine Besylate (Norvasc -) 5 mg PO DAILY [facility] Last Admin: 09/02/18 09:56 Dose: 5 mg Heparin Sodium (Porcine) (Heparin -) 5,000 unit SQ TID [facility] Last Admin: 09/02/18 13:56 Dose: Not Given Hydralazine HCl (Apresoline Injection -) 10 mg IVPUSH Q6H PRN PRN Reason: HYPERTENSION Ceftriaxone Sodium 1 gm/ (Dextrose) 50 mls @ 100 mls/hr IVPB DAILY [facility]; Protocol Last Admin: 09/02/18 09:57 Dose: 100 mls/hr Lisinopril (Prinivil) 2.5 mg PO DAILY [facility] Last Admin: 09/02/18 09:56 Dose: 2.5 mg HIV negative a/p llung mass with mediastinal adenopathy multiple nodules possible postobstructiv pneumonia continue rocephin awaiting biopsy Problem List - Problems (1) Lung mass Code(s): R91.8 - OTHER NONSPECIFIC ABNORMAL FINDING OF LUNG FIELD (2) HTN (hypertension) Code(s): I10 - ESSENTIAL (PRIMARY) HYPERTENSION
[2018-09-02] MEDS ORDERED: PNEUMOC 13-VAL CONJ-DIP CRM/PF 0.5 ML DISP.SYRIN IM ONE (18:38)
--- NOTE | 2018-09-02 19:20 | PN ---
Teaching Attending Note Name of Resident: Rochelle Hensley ATTENDING PHYSICIAN STATEMENT I saw and evaluated the patient. I reviewed the resident's note and discussed the case with the resident. I agree with the resident's findings and plan as documented. SUBJECTIVE: Ms Rivera is without complaint. Denies cp, sob, n/v. OBJECTIVE: Gen: nad Pulm: ctab w/o w/r/r CV: rrr w/o m/r/g Abd: +bs, s/nt/nd Ext: no c/c/e ASSESSMENT AND PLAN: Problem List - Problems (1) Lung mass Assessment/Plan: -found incidentally -will need lung biopsy -case d/w Dr Delgado -continue empiric rocephin per ID Code(s): R91.8 - OTHER NONSPECIFIC ABNORMAL FINDING OF LUNG FIELD (2) HTN (hypertension) Assessment/Plan: -controlled on current regimen Code(s): I10 - ESSENTIAL (PRIMARY) HYPERTENSION
[2018-09-02 21:58] VITALS: BMI 20.8
[2018-09-03 07:12] LABS: BASO % 0.6 % (0-2.0); EOS % 9.1 % (0-4.5); HEMATOCRIT 38.1 % (32.4-45.2); HEMOGLOBIN 12.7 GM/dL (10.7-15.3); LYMPH % 13.3 % (8-40); MCH 30.4 pg (25.7-33.7); MCHC 33.5 g/dl (32.0-36.0); MEAN CELL VOLUME 90.8 fl (80-96); MEAN PLT VOLUME 6.2 fl (7.5-11.1); MONO % 7.6 % (3.8-10.2); NEUT % 69.4 % (42.8-82.8); PLATELET COUNT 659 K/MM3 (134-434); WHITE BLOOD COUNT 11.9 K/mm3 (4.0-10.0)
[2018-09-03 07:44] LABS: ALK PHOS 73 U/L (45-117); ANION GAP 7 MMOL/L (8-16); BILIRUBIN,TOTAL 0.5 mg/dL (0.2-1); BLOOD UREA NITROGEN 9 mg/dL (7-18); CALCIUM 8.9 mg/dL (8.5-10.1); CHLORIDE 99 mmol/L (98-107); CO2 27 mmol/L (21-32); CREATININE 0.5 mg/dL (0.55-1.3); GLUCOSE,RANDOM 80 mg/dL (74-106); MAGNESIUM 2.1 mg/dL (1.8-2.4); PHOSPHOROUS 4.7 mg/dL (2.5-4.9); POTASSIUM 4.6 mmol/L (3.5-5.1); SGOT/AST 12 U/L (15-37); SGPT/ALT 19 U/L (13-61); SODIUM 133 mmol/L (136-145); TOT PROT 7.5 g/dl (6.4-8.2)
--- NOTE | 2018-09-03 09:24 | PN ---
Progress Note, Physician Chief Complaint: No CP or SOB - Current Medication List Current Medications: Active Medications Amlodipine Besylate (Norvasc -) 5 mg PO DAILY [facility] Last Admin: 09/02/18 09:56 Dose: 5 mg Heparin Sodium (Porcine) (Heparin -) 5,000 unit SQ TID [facility] Last Admin: 09/02/18 21:18 Dose: Not Given Hydralazine HCl (Apresoline Injection -) 10 mg IVPUSH Q6H PRN PRN Reason: HYPERTENSION Ceftriaxone Sodium 1 gm/ (Dextrose) 50 mls @ 100 mls/hr IVPB DAILY [facility]; Protocol Last Admin: 09/02/18 09:57 Dose: 100 mls/hr Lisinopril (Prinivil) 2.5 mg PO DAILY [facility] Last Admin: 09/02/18 09:56 Dose: 2.5 mg - Objective Vital Signs: Vital Signs Temperature 99.0 F 09/03/18 05:10 Pulse Rate 94 H 09/03/18 05:10 Respiratory Rate 20 09/03/18 05:10 Blood Pressure 147/89 09/03/18 05:10 O2 Sat by Pulse Oximetry (%) 98 09/02/18 21:00 Constitutional: Yes: No Distress Cardiovascular: Yes: Regular Rate and Rhythm Respiratory: Yes: Rhonchi Gastrointestinal: Yes: Soft Edema: No Neurological: Yes: Alert, Oriented ...Motor Strength: WNL Labs: CBC, BMP 09/03/18 05:30 09/03/18 05:30 INR, PTT INR 1.06 (0.83-1.09) 09/01/18 05:20 Laboratory Tests 09/03/18 09/03/18 05:30 05:30 WBC 11.9 H Hgb 12.7 Plt Count 659 H Sodium 133 L Potassium 4.6 Creatinine 0.5 L Assessment/Plan Assessment/Plan EKG: sinus tachycardia, no ischemic changes CT chest: mult pulmonary nodules suspicious for metastatic dz tele: sinus echo 09/2018: nl lv, rv tds, mild-mod mr, mild tr, nl rvsp 1. HTN urgency: - was not on meds, poor follow up - improved after initiation PO meds. - trops neg, EKG no ischemic changes - echo unremarkable 2. Lung lesions: - suggesting metastatic dz, onc consulted 3. Hyponatremia - manage per primary 4. PNA: - ID consulted 5. Tobacco use: - encouraged cessation
[2018-09-03] MEDS ORDERED: cefTRIAXone SODIUM 1 GM VIAL ONE (09:51)
[2018-09-03] MEDS ORDERED: DEXTROSE 5%-WATER - 50 ML IVPB ONE (09:51)
[2018-09-03] MEDS: LISINOPRIL 5 MG TABLET (FP) PO SCH (09:53)
[2018-09-03] MEDS: amLODIPine BESYLATE 5 MG TABLET (FP) PO SCH (09:53)
[2018-09-03] MEDS: CEFTRIAXONE 1 GM in DEXTROSE 5%-WATER - 50 ML IVPB SCH (09:54)
--- NOTE | 2018-09-03 11:46 | DS ---
Physical Exam: SUBJECTIVE: Patient seen and examined OBJECTIVE: Vital Signs Period Temp Pulse Resp BP Sys/Espinal Pulse Ox Last 24 Hr 98.2 F-99.0 F 94-110 20-20 132-147/84-95 97-98 PHYSICAL EXAM GENERAL: The patient is awake, alert, and fully oriented, in no acute distress. HEAD: Normal with no signs of trauma. EYES: PERRL, extraocular movements intact, sclera anicteric, conjunctiva clear. ENT: Ears normal, nares patent, oropharynx clear without exudates, moist mucous membranes. NECK: Trachea midline, full range of motion, supple. LUNGS: Breath sounds equal, clear to auscultation bilaterally, no wheezes, no crackles, no accessory muscle use. HEART: Regular rate and rhythm, S1, S2 without murmur, rub or gallop. ABDOMEN: Soft, nontender, nondistended, normoactive bowel sounds, no guarding, no rebound, no hepatosplenomegaly, no masses. EXTREMITIES: 2+ pulses, warm, well-perfused, no edema. NEUROLOGICAL: Cranial nerves II through XII grossly intact. Normal speech, gait not observed. PSYCH: Normal mood, normal affect. SKIN: Warm, dry, normal turgor, no rashes or lesions noted. LABS Laboratory Results - last 24 hr 09/03/18 09/03/18 05:30 05:30 WBC 11.9 H RBC 4.20 Hgb 12.7 Hct 38.1 MCV 90.8 MCH 30.4 MCHC 33.5 RDW 13.0 Plt Count 659 H MPV 6.2 L Absolute Neuts (auto) 8.2 H Neutrophils % 69.4 Lymphocytes % 13.3 Monocytes % 7.6 Eosinophils % 9.1 H Basophils % 0.6 Nucleated RBC % 0 Sodium 133 L Potassium 4.6 Chloride 99 Carbon Dioxide 27 Anion Gap 7 L BUN 9 Creatinine 0.5 L Creat Clearance w eGFR 124.61 Random Glucose 80 Calcium 8.9 Phosphorus 4.7 Magnesium 2.1 Total Bilirubin 0.5 AST 12 L ALT 19 Alkaline Phosphatase 73 Total Protein 7.5 Albumin 3.0 L HOSPITAL COURSE: Date of Admission:08/31/18 Date of Discharge: 09/03/18 Discharge Summary Reason For Visit: COUGH,LUNG MASS,HYPERTENSION Current Active Problems Cough (Acute) HTN (hypertension) (Acute) Lung mass (Acute) Condition: Stable - Instructions Diet, Activity, Other Instructions: Ms Rivera, you were admitted to the hospital for hypertension. You were also found to have lung masses. MEDICATIONS: Please continue to take Amlodypine 5 mg daily Please continue to take Lisinopril 2.5 mg daily. Please check your blood pressure at home. REFERRALS: Please see your primary care physician in a week. We also referred you to Pulmunologist and Oncologist to follow up next week for lung biopsy that can be done when you leave the hospital. Please follow up with radiology to schedule an appointment for lung biopsy. If you experience chest pain, SOB, palpitations, bleeding, elevated blood pressure, headache, please call 911 or come back to Emergency Room as soon as possible. Referrals: Brody Delgado MD [Staff Physician] - Geri Castellano MD [Primary Care Provider] - 1 Week Jorge Mcleod MD [Staff Physician] - Disposition: HOME - Home Medications Comprehensive Discharge Medication List: Ambulatory Orders NK [No Known Home Medication] 08/31/18 Problem List - Problems (1) Cough Code(s): R05 - COUGH (2) HTN (hypertension) Code(s): I10 - ESSENTIAL (PRIMARY) HYPERTENSION (3) Lung mass Code(s): R91.8 - OTHER NONSPECIFIC ABNORMAL FINDING OF LUNG FIELD - Discharge Referral Referred to [facility] Med P.C.: No
--- NOTE | 2018-09-03 12:10 | PN ---
Progress Note, Physician History of Present Illness: PULMONARY ALERT,NO DISTRESS,-CP,-SOB - Current Medication List Current Medications: Active Medications Amlodipine Besylate (Norvasc -) 5 mg PO DAILY [facility] Last Admin: 09/03/18 09:53 Dose: 5 mg Heparin Sodium (Porcine) (Heparin -) 5,000 unit SQ TID [facility] Last Admin: 09/02/18 21:18 Dose: Not Given Hydralazine HCl (Apresoline Injection -) 10 mg IVPUSH Q6H PRN PRN Reason: HYPERTENSION Ceftriaxone Sodium 1 gm/ (Dextrose) 50 mls @ 100 mls/hr IVPB DAILY [facility]; Protocol Last Admin: 09/03/18 09:54 Dose: 100 mls/hr Lisinopril (Prinivil) 2.5 mg PO DAILY [facility] Last Admin: 09/03/18 09:53 Dose: 2.5 mg - Objective Vital Signs: Vital Signs Temperature 99 F 09/03/18 10:00 Pulse Rate 96 H 09/03/18 10:00 Respiratory Rate 20 09/03/18 10:00 Blood Pressure 137/92 09/03/18 10:00 O2 Sat by Pulse Oximetry (%) 97 09/03/18 09:00 Constitutional: Yes: Calm, Thin Eyes: Yes: WNL HENT: Yes: WNL Neck: Yes: WNL Cardiovascular: Yes: Regular Rate and Rhythm, S1, S2 Respiratory: Yes: Rhonchi (FEW RHONCHI) Gastrointestinal: Yes: Normal Bowel Sounds, Soft Extremities: Yes: WNL Edema: No Labs: CBC, BMP 09/03/18 05:30 09/03/18 05:30 INR, PTT INR 1.06 (0.83-1.09) 09/01/18 05:20 Assessment/Plan Problem List - Problems (1) HTN (hypertension) Code(s): I10 - ESSENTIAL (PRIMARY) HYPERTENSION (2) Lung mass Code(s): R91.8 - OTHER NONSPECIFIC ABNORMAL FINDING OF LUNG FIELD Assessment/Plan Likely Metastatic Disease Suspect Superimposed Pneumonia Smoker HTN - empiric antibiotics - CT guided needle biopsy to document metastatic disease - inhaled bronchodilators as needed - outpt PFTs - smoking cessation - DVT prophylaxis DR CATES
--- NOTE | 2018-09-03 12:16 | PN ---
Progress Note (short form) - Note Progress Note: feels better dry cough unchanged bp better control awaiting biopsy Vital Signs Period Temp Pulse Resp BP Sys/Espinal Pulse Ox Last 24 Hr 98.2 F-99.0 F 94-110 20-20 132-147/84-95 97-98 cor-rrr llungs decreased bs at bases abd soft,nt ext no edema CBC, BMP 09/03/18 05:30 09/03/18 05:30 Microbiology 08/31/18 10:05 Blood - Peripheral Venous Blood Culture - Preliminary NO GROWTH OBTAINED AFTER 48 HOURS, INCUBATION TO CONTINUE FOR 3 DAYS. 08/31/18 10:10 Blood - Peripheral Venous Blood Culture - Preliminary NO GROWTH OBTAINED AFTER 48 HOURS, INCUBATION TO CONTINUE FOR 3 DAYS. Current Medications Amlodipine Besylate (Norvasc -) 5 mg PO DAILY [facility] Last Admin: 09/03/18 09:53 Dose: 5 mg Heparin Sodium (Porcine) (Heparin -) 5,000 unit SQ TID [facility] Last Admin: 09/02/18 21:18 Dose: Not Given Hydralazine HCl (Apresoline Injection -) 10 mg IVPUSH Q6H PRN PRN Reason: HYPERTENSION Ceftriaxone Sodium 1 gm/ (Dextrose) 50 mls @ 100 mls/hr IVPB DAILY [facility]; Protocol Last Admin: 09/03/18 09:54 Dose: 100 mls/hr Lisinopril (Prinivil) 2.5 mg PO DAILY [facility] Last Admin: 09/03/18 09:53 Dose: 2.5 mg HIV negative a/p llung mass with mediastinal adenopathy multiple nodules possible postobstructive pneumonia continue rocephin- can switch to po augmentin when ready for discharge awaiting biopsy HTN- better controlled Problem List - Problems (1) Lung mass Code(s): R91.8 - OTHER NONSPECIFIC ABNORMAL FINDING OF LUNG FIELD (2) HTN (hypertension) Code(s): I10 - ESSENTIAL (PRIMARY) HYPERTENSION
--- NOTE | 2018-09-03 16:40 | PN ---
Physical Exam: SUBJECTIVE: Patient seen and examined. She is feeling good today, no overnight events. OBJECTIVE: Vital Signs Period Temp Pulse Resp BP Sys/Espinal Pulse Ox Last 24 Hr 98.2 F-99.1 F 94-108 14-20 137-185/76-107 96-98 GENERAL: The patient is awake, alert, and fully oriented, in no acute distress. HEAD: Normal with no signs of trauma. EYES: Extraocular movements intact ENT: Oropharynx clear without exudates, moist mucous membranes. NECK: Trachea midline, full range of motion, supple. LUNGS: Breath sounds equal, occasional rhales, crackles bilaterally, no wheezes , no crackles, no accessory muscle use. HEART: Regular rate and rhythm, S1, S2 without murmur, rub or gallop. ABDOMEN: Soft, nontender, nondistended, normoactive bowel sounds, no guarding EXTREMITIES: 2+ pulses,no edema. NEUROLOGICAL: Normal speech, non focal, gait not observed. PSYCH: Normal mood, normal affect. SKIN: Warm, dry, no rashes. Laboratory Results - last 24 hr 09/03/18 09/03/18 05:30 05:30 WBC 11.9 H RBC 4.20 Hgb 12.7 Hct 38.1 MCV 90.8 MCH 30.4 MCHC 33.5 RDW 13.0 Plt Count 659 H MPV 6.2 L Absolute Neuts (auto) 8.2 H Neutrophils % 69.4 Lymphocytes % 13.3 Monocytes % 7.6 Eosinophils % 9.1 H Basophils % 0.6 Nucleated RBC % 0 Sodium 133 L Potassium 4.6 Chloride 99 Carbon Dioxide 27 Anion Gap 7 L BUN 9 Creatinine 0.5 L Creat Clearance w eGFR 124.61 Random Glucose 80 Calcium 8.9 Phosphorus 4.7 Magnesium 2.1 Total Bilirubin 0.5 AST 12 L ALT 19 Alkaline Phosphatase 73 Total Protein 7.5 Albumin 3.0 L Active Medications Generic Name Dose Route Start Last Admin Trade Name Freq PRN Reason Stop Dose Admin Amlodipine Besylate 5 mg 09/01/18 10:00 09/03/18 09:53 Norvasc - PO 5 mg DAILY [facility] Administration Heparin Sodium (Porcine) 5,000 unit 08/31/18 22:45 09/02/18 21:18 Heparin - SQ Not Given TID [facility] Hydralazine HCl 10 mg 09/01/18 07:28 Apresoline Injection - IVPUSH Q6H PRN HYPERTENSION Ceftriaxone Sodium 1 gm/ 50 mls @ 100 mls/hr 09/01/18 10:00 09/03/18 09:54 Dextrose IVPB 100 mls/hr DAILY [facility] Administration Protocol Lisinopril 2.5 mg 09/01/18 10:00 09/03/18 09:53 Prinivil PO 2.5 mg DAILY [facility] Administration ASSESSMENT/PLAN: Pt is a 63 y/o F with no significant past medical history who presented referred by her PCP due to elevated BP and EKG changes. HTN Urgency -BP on arrival 208/119 w/o symptoms -cont Norvasc 5, Lisinopril 2.5 daily and started Hydralazine 10 mg Q6h -better controll -negative troponins, ECHO reviewed -Cardiology consulted, Suspected metastatic Cancer -CTAP- reviewed reveals numerous metastatic lung lesions consistent with malignancy, also cavitary lesion -Pulm and Oncology consulted, CT guided biopsy today -Ca 19-9 251, CA 125 nl -ID consulted -will also treat as superimposed PNA with chronic cough -continue Ceftriaxone 1g -quantiferon and HIV neg -sputum cultures ordered, Legionella urine neg FEN:No/no changes/ low Na diet DVT PPX: Heparin sq on hold Dispo: Med surg, anticipated discharge 24 hrs after lung biopsy Problem List - Problems (1) Cough Code(s): R05 - COUGH (2) HTN (hypertension) Code(s): I10 - ESSENTIAL (PRIMARY) HYPERTENSION (3) Lung mass Code(s): R91.8 - OTHER NONSPECIFIC ABNORMAL FINDING OF LUNG FIELD Visit type - Emergency Visit Emergency Visit: Yes ED Registration Date: 08/31/18 Care time: The patient presented to the Emergency Department on the above date and was hospitalized for further evaluation of their emergent condition. - New Patient This patient is new to me today: No - Critical Care Critical Care patient: No - Discharge Referral Referred to [facility] Med P.C.: No
--- NOTE | 2018-09-03 17:52 | PN ---
Teaching Attending Note Name of Resident: Rochelle Hensley ATTENDING PHYSICIAN STATEMENT I saw and evaluated the patient. I reviewed the resident's note and discussed the case with the resident. I agree with the resident's findings and plan as documented. SUBJECTIVE: Ms Rivera is without complaint today. Denies cp, sob, n/v. OBJECTIVE: Last Vital Signs Temp Pulse Resp BP Pulse Ox 37.3 C 103 H 14 147/76 96 09/03/18 14:00 09/03/18 14:00 09/03/18 13:45 09/03/18 14:00 09/03/18 13:45 Gen: nad Pulm: ctab w/o w/r/r CV: rrr w/o m/r/g Abd: +bs, s/nt/nd Ext: no c/c/e CBC, BMP 09/03/18 05:30 09/03/18 05:30 ASSESSMENT AND PLAN: (1) Lung mass Assessment/Plan: -case d/w Dr Delgado -lung biopsy today -monitor overnight Code(s): R91.8 - OTHER NONSPECIFIC ABNORMAL FINDING OF LUNG FIELD (2) HTN (hypertension) Assessment/Plan: -controlled on current regimen Code(s): I10 - ESSENTIAL (PRIMARY) HYPERTENSION Problem List - Problems (1) Lung mass Code(s): R91.8 - OTHER NONSPECIFIC ABNORMAL FINDING OF LUNG FIELD (2) HTN (hypertension) Code(s): I10 - ESSENTIAL (PRIMARY) HYPERTENSION
--- NOTE | 2018-09-03 20:33 | PN ---
Progress Note (short form) - Note Progress Note: Patient seen and examined s/p lung biopsy AFVSS Cor: RSR, No murmurs, No gallops Lungs: Clear to P&A Abd: Soft, Normal bowel sounds, No organomegaly Ext:No significant edema Labs/Meds reviewed A/P 63 y/o patient with Cavitary lung mass,heavy smoker with possible 01/12 exposure as well. Has mediastinal disease and likely post obstructive pneumonitis. s/p lung bx RUL mass and Multiple metastatic lung nodules check PET scan/ mri brain f/u path
[2018-09-03] MEDS: HEPARIN NA (PORCINE) 5,000 UNITS/ML 1ML VIAL SQ SCH (22:20)
[2018-09-04 07:27] LABS: BASO % 0.6 % (0-2.0); EOS % 8.5 % (0-4.5); HEMATOCRIT 35.7 % (32.4-45.2); HEMOGLOBIN 12.2 GM/dL (10.7-15.3); MCH 31.1 pg (25.7-33.7); MCHC 34.2 g/dl (32.0-36.0); MEAN CELL VOLUME 90.8 fl (80-96); MEAN PLT VOLUME 6.2 fl (7.5-11.1); MONO % 6.4 % (3.8-10.2); NEUT % 72.5 % (42.8-82.8); PLATELET COUNT 617 K/MM3 (134-434); RBC 3.93 M/mm3 (3.60-5.2); RDW 12.9 % (11.6-15.6)
[2018-09-04 07:48] LABS: ALBUMIN 2.8 g/dl (3.4-5.0); ALK PHOS 68 U/L (45-117); ANION GAP 8 MMOL/L (8-16); BILIRUBIN,TOTAL 0.3 mg/dL (0.2-1); BLOOD UREA NITROGEN 8 mg/dL (7-18); CALCIUM 8.9 mg/dL (8.5-10.1); CHLORIDE 100 mmol/L (98-107); CO2 24 mmol/L (21-32); CREATININE 0.4 mg/dL (0.55-1.3); GLUCOSE,RANDOM 83 mg/dL (74-106); POTASSIUM 4.4 mmol/L (3.5-5.1); SGOT/AST 12 U/L (15-37); SGPT/ALT 17 U/L (13-61); SODIUM 133 mmol/L (136-145)
[2018-09-04] MEDS ORDERED: cefTRIAXone SODIUM 1 GM VIAL ONE (08:02)
[2018-09-04] MEDS ORDERED: DEXTROSE 5%-WATER - 50 ML IVPB ONE (08:02)
[2018-09-04 08:19] VITALS: BP 155/90; PULSE 103; TEMP 98.7
[2018-09-04] MEDS: HEPARIN NA (PORCINE) 5,000 UNITS/ML 1ML VIAL SQ SCH ×2 (09:17→14:29)
[2018-09-04] MEDS: CEFTRIAXONE 1 GM in DEXTROSE 5%-WATER - 50 ML IVPB SCH (09:18)
[2018-09-04] MEDS: amLODIPine BESYLATE 5 MG TABLET (FP) PO SCH (09:18)
[2018-09-04] MEDS: LISINOPRIL 5 MG TABLET (FP) PO SCH (09:18)
--- NOTE | 2018-09-04 11:12 | PN ---
Progress Note, Physician History of Present Illness: No complaints this AM Tele: St 100s - Current Medication List Current Medications: Active Medications Amlodipine Besylate (Norvasc -) 5 mg PO DAILY [facility] Last Admin: 09/04/18 09:18 Dose: 5 mg Heparin Sodium (Porcine) (Heparin -) 5,000 unit SQ TID [facility] Last Admin: 09/04/18 09:17 Dose: Not Given Hydralazine HCl (Apresoline Injection -) 10 mg IVPUSH Q6H PRN PRN Reason: HYPERTENSION Ceftriaxone Sodium 1 gm/ (Dextrose) 50 mls @ 100 mls/hr IVPB DAILY [facility]; Protocol Last Admin: 09/04/18 09:18 Dose: 100 mls/hr Lisinopril (Prinivil) 2.5 mg PO DAILY [facility] Last Admin: 09/04/18 09:18 Dose: 2.5 mg - Objective Vital Signs: Vital Signs Temperature 98.7 F 09/04/18 08:18 Pulse Rate 103 H 09/04/18 08:18 Respiratory Rate 20 09/04/18 08:20 Blood Pressure 155/90 09/04/18 08:18 O2 Sat by Pulse Oximetry (%) 97 09/04/18 08:20 Constitutional: Yes: No Distress, Calm Cardiovascular: Yes: Regular Rate and Rhythm Respiratory: Yes: CTA Bilaterally Edema: No Labs: CBC, BMP 09/04/18 05:30 09/04/18 05:30 INR, PTT INR 1.06 (0.83-1.09) 09/01/18 05:20 Assessment/Plan 1. HTN urgency: - was not on meds, poor follow up - improved after initiation PO meds. - trops neg, EKG no ischemic changes - echo unremarkable -/4: BP 130-150s/90s on Amlodipine 5mg daily and Lisinopril 2.5mg daily. Will increase Lisinopril to 5mg daily 2. Lung lesions: - suggesting metastatic dz, onc consulted 3. Hyponatremia - manage per primary 4. PNA: - ID consulted 5. Tobacco use: - encouraged cessation
--- NOTE | 2018-09-04 11:14 | PN ---
Progress Note, Physician History of Present Illness: PULMONARY ALERT,NO DISTRESS,S/P CT GUIDED BX TOLERATED PROCEDURE WELL - Current Medication List Current Medications: Active Medications Amlodipine Besylate (Norvasc -) 5 mg PO DAILY [facility] Last Admin: 09/04/18 09:18 Dose: 5 mg Heparin Sodium (Porcine) (Heparin -) 5,000 unit SQ TID [facility] Last Admin: 09/04/18 09:17 Dose: Not Given Hydralazine HCl (Apresoline Injection -) 10 mg IVPUSH Q6H PRN PRN Reason: HYPERTENSION Ceftriaxone Sodium 1 gm/ (Dextrose) 50 mls @ 100 mls/hr IVPB DAILY [facility]; Protocol Last Admin: 09/04/18 09:18 Dose: 100 mls/hr Lisinopril (Prinivil) 2.5 mg PO DAILY [facility] Last Admin: 09/04/18 09:18 Dose: 2.5 mg - Objective Vital Signs: Vital Signs Temperature 98.7 F 09/04/18 08:18 Pulse Rate 103 H 09/04/18 08:18 Respiratory Rate 20 09/04/18 08:20 Blood Pressure 155/90 09/04/18 08:18 O2 Sat by Pulse Oximetry (%) 97 09/04/18 08:20 Constitutional: Yes: Calm, Thin Eyes: Yes: WNL HENT: Yes: WNL Neck: Yes: WNL Cardiovascular: Yes: Regular Rate and Rhythm, S1, S2 Respiratory: Yes: Rhonchi (FEW SCATTERED RHONCHI) Gastrointestinal: Yes: Normal Bowel Sounds, Soft Extremities: Yes: WNL Edema: No Labs: CBC, BMP 09/04/18 05:30 09/04/18 05:30 INR, PTT INR 1.06 (0.83-1.09) 09/01/18 05:20 Assessment/Plan Problem List - Problems (1) HTN (hypertension) Code(s): I10 - ESSENTIAL (PRIMARY) HYPERTENSION (2) Lung mass Code(s): R91.8 - OTHER NONSPECIFIC ABNORMAL FINDING OF LUNG FIELD Assessment/Plan Likely Metastatic Disease s/p ct guided bx rul mass Suspect Superimposed Pneumonia Smoker HTN - empiric antibiotics - check path - chest x-ray today - inhaled bronchodilators as needed - outpt PFTs - smoking cessation - DVT prophylaxis - metastatic w/u as outpatient - pet scan outpatient DR CATES
--- NOTE | 2018-09-04 14:19 | DS ---
Physical Examination Vital Signs: Vital Signs Temperature 37.1 C 09/04/18 08:18 Pulse Rate 103 H 09/04/18 08:18 Respiratory Rate 20 09/04/18 08:20 Blood Pressure 155/90 09/04/18 08:18 O2 Sat by Pulse Oximetry (%) 97 09/04/18 08:20 Labs: CBC, BMP 09/04/18 05:30 09/04/18 05:30 Discharge Summary Reason For Visit: COUGH,LUNG MASS,HYPERTENSION Current Active Problems Cough (Acute) HTN (hypertension) (Acute) Lung mass (Acute) Condition: Stable - Instructions Diet, Activity, Other Instructions: Ms Rivera, you were admitted to the hospital for hypertension. You were also found to have lung masses. MEDICATIONS: Please continue to take Amlodypine 5 mg daily Please continue to take Lisinopril 2.5 mg daily. Please check your blood pressure at home. REFERRALS: Please see your primary care physician in a week. We also referred you to Pulmunologist and Oncologist to follow up next week for lung biopsy that can be done when you leave the hospital. Please follow up with radiology to schedule an appointment for lung biopsy. If you experience chest pain, SOB, palpitations, bleeding, elevated blood pressure, headache, please call 911 or come back to Emergency Room as soon as possible. Referrals: Brody Delgado MD [Staff Physician] - Geri Castellano MD [Primary Care Provider] - 1 Week Jorge Mcleod MD [Staff Physician] - Disposition: HOME - Home Medications Comprehensive Discharge Medication List: Ambulatory Orders Amlodipine Besylate [Norvasc -] 5 mg PO DAILY #30 tablet 09/04/18 Amox-Tr/K Cl [Augmentin - 875Mg Tablet] 1 tab PO BID #20 tablet 09/04/18 Lisinopril [Prinivil] 2.5 mg PO DAILY #30 tablet 09/04/18
[2018-09-05] MEDS ORDERED: LISINOPRIL 5 MG TABLET (FP) PO SCH (10:00)
--- NOTE | 2018-09-07 13:20 | PATH ---
Surgical Pathology Report Patient Name: [facility]. Rec. #: [id number] /Age/Gender: 1955 (Age: 63) / F Account: [id number] Location: 4 W TELEMETRY U Taken: 09/03/2018 Received: 09/03/2018 Reported: 09/07/2018 Physicians: Frederick Wilson M.D. Specimen(s) Received RIGHT LUNG BIOPSY Clinical History 63-year-old female with large right upper lobe mass and innumerable bilateral lung nodules. Patient is heavy smoker. Final Diagnosis RIGHT LUNG BIOPSY: INVASIVE ADENOCARCINOMA, POORLY DIFFERENTIATED, CONSISTENT WITH LUNG ORIGIN. COMMENT: Immunohistochemical stained slides demonstrate the tumor cells to be positive for CK7, TTF-1, Napsin A, and P63, while negative for P40, D2-40, and CK20. The immunophenotype supports a diagnosis of adenocarcinoma of lung origin. Immunohistochemistry stains P40, D2-40, and Napsin A performed at [place], [place] ([id number]) interpreted at [facility]. Immunohistochemistry stains CK7, CK20, P63, and TTF-1 performed and interpreted at [facility]. Positive and negative controls (internal if applicable) show appropriate results. Intradepartmental case reviewed with concordance on diagnosis. This case was discussed with Dr. Delgado and Dr. Mcleod on September 07, 2018. Electronically Signed María Regan M.D. Gross Description Received in formalin labeled "right lung biopsy," is a 1.0 x 0.5 x 0.1 cm aggregate of smith, irregular to cylindrical soft tissue fragments. The formalin is filtered and the specimen is entirely submitted in one cassette. DL/09/03/2018 saudi09/03/2018
== END 2018-09-04 14:31 | disposition home or self-care (01) | DRG 304 ==
LOC: JER 16:32 → JERBED 22:05 → J4W 09-01 15:31
PROVIDERS: ADMIT Internal Medicine; ATTEND Internal Medicine
PROC: 0BBC3ZX Excision of Right Upper Lung Lobe, Percutaneous Approach, Diagnostic (ICD-10-PCS; principal; 2018-09-03)
DX: I16.0 Hypertensive urgency (principal); J18.9 Pneumonia, unspecified organism; E87.1 Hypo-osmolality and hyponatremia; R00.0 Tachycardia, unspecified; F17.210 Nicotine dependence, cigarettes, uncomplicated; R91.8 Other nonspecific abnormal finding of lung field; R94.31 Abnormal electrocardiogram [ECG] [EKG]; J98.4 Other disorders of lung; R05 Cough
CPT/HCPCS: 32405; 36415; 71045-TC-FY; 71046-TC-FY; 71275-TC; 74176-TC; 76604-TC; 77012-TC; 80053; 80061; 82306; 82465; 82550; 83036; 83721; 83735; 83880; 83930; 83935; 84100; 84134; 84300; 84443; 84484; 85025; 85610; 85730; 86301; 86304; 86480; 87040; 87389; 88305-TC; 88341-TC; 90688; 90732; 93005; 93010; 93306-TC; 94010; 99285-25; G0008; G0009; J1644